=== PATIENT | female | born 1980 | race Caucasian/White ===

== ENCOUNTER 2016-11-15 17:09 | Emergency (ER) | payer BC, MEDICAID ==
[2016-11-15] MEDS ORDERED: KETOROLAC TROMETHAMINE 60 MG/2 ML SDV IM ONE (18:28)
--- NOTE | 2016-11-15 19:06 | ER Document Report ---
ED General - General Time seen by provider: 18:15 Mode of Arrival: Ambulatory Information source: Patient TRAVEL OUTSIDE OF THE U.S. IN LAST 30 DAYS: No - HPI Onset: Other - see HPI note Similar symptoms previously: No Recently seen / treated by doctor: No <YANICK AGUIAR - Last Filed: 11/15/16 19:21> <TYYOHAN - Last Filed: 11/19/16 02:56> - General Chief Complaint: Abdominal Pain Stated Complaint: ABDOMINAL PAIN Notes: Patient is a 36-year-old female presenting to the emergency department for some right-sided abdominal pain. Patient states that she has had this pain for the past week. Patient's pain has increased in the past 3-4 days , as well as radiating throughout her abdomen and pelvic area. Patient states that she does not kidney stones. Patient has had a cholecystectomy and a partial hysterectomy (patient still has her ovaries). Patient states that she also has some type of liver disease and has been evaluated for this at [place] with a liver specialist. Patient has had constant nausea and constant diarrhea. Patient states that she also saw pelvic pain specialist due to her very being "loose and possibly twisted." Patient also has a history of ovarian cysts. Patient states that after her hysterectomy. She is having daily pelvic pain which is why she went saw a specialist. Patient states she sees Dr. Damon with [facility]. (YANICK AGUIAR) - Related Data Allergies/Adverse Reactions: No Known Allergies Allergy (Verified 11/15/16 18:14) Past Medical History - General Information source: Patient - Social History Smoking Status: Unknown if Ever Smoked Family History: None Patient has suicidal ideation: No Patient has homicidal ideation: No Pulmonary Medical History: Reports: Hx Pneumonia Neurological Medical History: Reports: Hx Migraine Renal/ Medical History: Reports: Hx Kidney Stones, Hx Ovarian Cysts Musculoskeltal Medical History: Reports Hx Arthritis - Rheumatoid arthritis, Reports Hx Fibromyalgia Past Surgical History: Reports: Hx Section - x2, Hx Cholecystectomy, Hx Hysterectomy - 2010, Hx Kidney (Renal Surgery) - lithotripsy - Immunizations Immunizations up to date: Yes Hx Diphtheria, Pertussis, Tetanus Vaccination: Yes <YANICK AGUIAR - Last Filed: 11/15/16 19:21> Review of Systems - Review of Systems Constitutional: No symptoms reported EENT: No symptoms reported Cardiovascular: No symptoms reported Respiratory: No symptoms reported Gastrointestinal: See HPI, Abdominal pain, Diarrhea, Nausea Genitourinary: No symptoms reported Female Genitourinary: See HPI Musculoskeletal: No symptoms reported Skin: No symptoms reported Hematologic/Lymphatic: No symptoms reported Neurological/Psychological: No symptoms reported -: Yes All other systems reviewed and negative <KARYYANICK BRYANT - Last Filed: 11/15/16 19:21> Physical Exam - Vital signs Interpretation: Normal - General General appearance: Appears well, Alert In distress: Mild - HEENT Head: Normocephalic, Atraumatic Eyes: Normal Pupils: PERRL Mucous membranes: Moist - Respiratory Respiratory status: No respiratory distress Chest status: Nontender Breath sounds: Normal Chest palpation: Normal - Cardiovascular Rhythm: Regular Heart sounds: Normal auscultation Murmur: No - Abdominal Inspection: Normal Distension: No distension Bowel sounds: Normal Tenderness: Nontender Organomegaly: No organomegaly - Back Back: Normal, Nontender - Extremities General upper extremity: Normal inspection, Normal ROM, Normal strength General lower extremity: Normal inspection, Normal ROM, Normal strength - Neurological Neuro grossly intact: Yes Cognition: Normal Orientation: AAOx4 Demarco Coma Scale Eye Opening: Spontaneous [place] Coma Scale Verbal: Oriented Demarco Coma Scale Motor: Obeys Commands Demarco Coma Scale Total: 15 Speech: Normal Sensory: Normal - Psychological Associated symptoms: Normal affect, Normal mood - Skin Skin Temperature: Warm Skin Moisture: Dry <KARYANNETTEYANICK - Last Filed: 11/15/16 19:21> <YOHAN CRAWFORD - Last Filed: 11/19/16 02:56> - Vital signs Vitals: Temp Pulse Resp BP Pulse Ox 98.1 F 60 16 98/71 L 100 11/15/16 17:23 11/15/16 17:23 11/15/16 17:23 11/15/16 17:23 11/15/16 17:23 Course <YANICK AGUIAR - Last Filed: 11/15/16 19:21> - Laboratory Result Diagrams: 11/15/16 19:42 11/15/16 19:42 <YOHAN CRAWFORD - Last Filed: 11/19/16 02:56> - Re-evaluation Re-evalutation: 11/15/16 20:41 She presents emergency per with nonspecific abdominal pain it's been going on for several days. She has a history of ovarian cyst as well as chronic pelvic pain and adhesions. She states is no associated nausea vomiting diarrhea fevers chills or change in appetite. She does not have her uterus anymore she's had ovarian cysts in the past and feels similar no vaginal discharge or urinary complaints. On examination she is well-appearing nontoxic in no acute distress serial abdominal examinations no acute tenderness or any rebound rigidity. Laboratory evaluation no acute white cell count elevation laboratory evaluation negative chemistry negative urinalysis for infection. Patient is given a shot of Toradol oral Percocet here. He does not warrant an acute CT scan of the abdomen or pelvis. Going to have her follow-up with primary care physician in 1224 hrs. no acute clinical concerns for appendicitis return for increasing worsening or new symptoms (YOHAN CRAWFORD) - Vital Signs Vital signs: Temp Pulse Resp BP Pulse Ox 98.1 F 52 L 18 101/68 100 11/15/16 20:43 11/15/16 20:43 11/15/16 20:43 11/15/16 20:43 11/15/16 20:43 - Laboratory Laboratory results interpreted by me: 11/15/16 18:43 Urine Ketones TRACE H Urine Urobilinogen 2.0 H Urine Ascorbic Acid 40 H Discharge <YANICK AGUIAR - Last Filed: 11/15/16 19:21> <YOHAN CRAWFORD - Last Filed: 11/19/16 02:56> - Discharge Clinical Impression: abdominal pain Condition: Stable Disposition: HOME, SELF-CARE Instructions: Abdominal Pain ([facility]) Additional Instructions: Abdominal Pain There are many causes of abdominal pain. Pain can mean a serious problem requiring surgery (such as appendicitis). It can also be an innocent problem that goes away on its own (such as a viral infection). Often, time must pass to determine the cause of pain. The physician does not feel that hospitalization is necessary, at present. Things may change within the next 24 hours. Call the doctor or come back for re- examination if any problems occur, such as: (1) Pain that becomes more severe, steady, or becomes concentrated in one specific area. Also, pain that is more severe with movement or coughing. (2) Vomiting that persists or becomes more frequent. (3) Blood in the vomitus, urine, or bowel movements. Blood in the stool may have a tarry or black appearance. (4) Shaking chills or fever greater than 100 degrees F. (5) The abdomen becomes more distended or swollen. (6) Bowel movements cease. (7) Failure to improve as expected. Follow-up with your primary care physician 1224 hrs. return for increasing worsening or new symptoms Scribe Attestation: 11/15/16 20:44 I personally performed the services described in the documentation reviewed the documentation recorded by my scribe in my presence and it accurately and completely records my words and actions (YOHAN CRAWFORD) Scribe Documentation - Scribe Written by Scribe:: Yanick Aguiar 11/15/16 19:15 acting as scribe for :: Ty <YANICK AGUIAR - Last Filed: 11/15/16 19:21>
[2016-11-15 19:12] LABS: APPEARANCE,URINE SLIGHTLY-CLOUDY; BILIRUBIN,URINE NEGATIVE (NEGATIVE); GLUCOSE, URINE NEGATIVE (NEGATIVE); KETONES,URINE TRACE mg/dL (NEGATIVE); LEUKOCYTE ESTERASE,URINE NEGATIVE (NEGATIVE); NITRITE,URINE NEGATIVE (NEGATIVE); PROTEIN,URINE NEGATIVE (NEGATIVE); URINE SPECIFIC GRAVITY 1.023
[2016-11-15 19:25] LABS: URINE BARBITURATES SCREEN NEGATIVE; URINE METHADONE SCREEN NEGATIVE; URINE OPIATES LOW NEGATIVE; URINE PHENCYCLIDINE SCREEN NEGATIVE
[2016-11-15 20:08] LABS: ABSOLUTE LYMPHOCYTES (AUTO) 1.7 10^3/uL (0.5-4.7); ABSOLUTE MONOCYTES (AUTO) 0.4 10^3/uL (0.1-1.4); ABSOLUTE NEUT (AUTO) 5.2 10^3/uL (1.7-8.2); BASOPHILS % (AUTO) 0.5 % (0-2); EOSINOPHILS % (AUTO) 0.6 % (0-6); HEMATOCRIT 41.4 % (36.0-47.0); HEMOGLOBIN 13.9 g/dL (12.0-15.5); HGB HCT DIFFERENCE 0.3; LYMPHOCYTES % (AUTO) 23.7 % (13-45); MEAN CORPUSCULAR HEMOGLOBIN 31.4 pg (27.0-33.4); MEAN CORPUSCULAR HGB CONC 33.4 g/dL (32.0-36.0); MEAN CORPUSCULAR VOLUME 94 fl (80-97); MONOCYTES % (AUTO) 4.8 % (3-13); RED BLOOD COUNT 4.41 10^6/uL (3.72-5.28); SEGMENTED NEUTROPHILS % (AUTO) 70.4 % (42-78); WHITE BLOOD COUNT 7.3 10^3/uL (4.0-10.5)
[2016-11-15 20:26] LABS: ALANINE AMINOTRANSFERASE 24 U/L (9-52); ALBUMIN 4.5 g/dL (3.5-5.0); ALKALINE PHOSPHATASE 59 U/L (38-126); ANION GAP 12 (5-19); ASPARTATE AMINO TRANSFERASE 19 U/L (14-36); BILIRUBIN,DIRECT 0.3 mg/dL (0.0-0.4); BLOOD UREA NITROGEN 16 mg/dL (7-20); CARBON DIOXIDE 30 mmol/L (22-30); CHLORIDE 101 mmol/L (98-107); CREATININE RESULT 0.72 mg/dL (0.52-1.25); GLUCOSE 84 mg/dL (75-110); LIPASE 52.4 U/L (23-300); SODIUM 143.4 mmol/L (137-145); TOTAL PROTEIN 7.3 g/dL (6.3-8.2)
[2016-11-15] MEDS ORDERED: HYDROCODONE/ACETAMINOPHEN 5-325 MG 6 TAB/DSPK PO PRN (20:44)
[2016-11-15 20:51] VITALS: BP 101/68
== END 2016-11-15 21:00 | disposition home or self-care (01) ==
LOC: ER 17:09
DX: R10.9 Unspecified abdominal pain (principal); R10.2 Pelvic and perineal pain
CPT/HCPCS: 99284; 96372; 36415; 83690; 85025; 80053; 81001; 80307; J1885

== ENCOUNTER 2017-03-07 16:31 | Emergency (ER) | payer SELFPAY ==
--- NOTE | 2017-03-07 17:27 | ER Document Report ---
ED Fall - General Chief Complaint: Fall Injury Stated Complaint: FALL/HEAD INJURY Time Seen by Provider: 03/07/17 17:26 Notes: The patient is a 36-year-old female, past medical history fibromyalgia, who presents after she fell off a chair and landed on her back. She is complaining of head pain, neck pain, back pain and right hand and wrist pain. She thinks she had LOC. She denies blurry vision, chest pain, shortness of breath, saddle anesthesia, ataxia, change in bowel or bladder, fevers or abdominal pain. TRAVEL OUTSIDE OF THE [place] IN LAST 30 DAYS: No - Related data Allergies/Adverse Reactions: No Known Allergies Allergy (Verified 11/15/16 18:14) Home Medications: Current Home Medications Buspirone HCl 15 mg PO TID 03/07/17 [History] Clonazepam 03/07/17 [History] Clonazepam [Klonopin] 1 mg PO PRN PRN 03/07/17 [History] Diazepam [Valium 5 mg Tablet] 10 mg PO QID 03/07/17 [History] Fluoxetine HCl [Prozac] 40 mg PO DAILY 03/07/17 [History] Lamotrigine 25 mg PO DAILY 03/07/17 [History] Trazodone HCl 100 mg PO QHS 03/07/17 [History] Past Medical History - General Information source: Patient - Social History Smoking Status: Unknown if Ever Smoked Family History: None - Past Medical History Cardiac Medical History: Denies: Hx Coronary Artery Disease, Hx Heart Attack, Hx Hypertension Pulmonary Medical History: Reports: Hx Pneumonia Denies: Hx Asthma, Hx Bronchitis, Hx COPD Neurological Medical History: Reports: Hx Migraine. Denies: Hx Cerebrovascular Accident, Hx Seizures Renal/ Medical History: Reports: Hx Kidney Stones, Hx Ovarian Cysts. Denies: Hx Peritoneal Dialysis Musculoskeltal Medical History: Reports Hx Arthritis - Rheumatoid arthritis, Reports Hx Fibromyalgia Past Surgical History: Reports: Hx Section - x2, Hx Cholecystectomy, Hx Hysterectomy, Hx Kidney (Renal Surgery) - lithotripsy - Immunizations Immunizations up to date: Yes Hx Diphtheria, Pertussis, Tetanus Vaccination: Yes Review of Systems - Review of Systems Notes: REVIEW OF SYSTEMS: CONSTITUTIONAL: -fevers, -chills EENT: -eye pain, -difficulty swallowing, -nasal congestion CARDIOVASCULAR:-chest pain, -syncope. RESPIRATORY: -cough, -SOB GASTROINTESTINAL: -abdominal pain, -nausea, -vomiting, -diarrhea GENITOURINARY: -dysuria, -hematuria MUSCULOSKELETAL: +back pain, +neck pain SKIN: -rash or skin lesions. HEMATOLOGIC: -easy bruising or bleeding. LYMPHATIC: -swollen, enlarged glands. NEUROLOGICAL: -altered mental status, +loss of consciousness, +headache, - neurologic symptoms PSYCHIATRIC: -anxiety, -depression. ALL OTHER SYSTEMS REVIEWED AND NEGATIVE. Physical Exam - Vital signs Vitals: Resp 16 03/07/17 16:47 - Notes Notes: PHYSICAL EXAMINATION: GENERAL: Well-appearing, well-nourished and in no acute distress. HEAD: Atraumatic, normocephalic. EYES: Pupils equal round and reactive to light, extraocular movements intact, sclera anicteric, conjunctiva are normal. ENT: nares patent, oropharynx clear without exudates. Moist mucous membranes. NECK: Midline C-spine tenderness, patient arrives in c-collar BACK: Midline thoracic tenderness LUNGS: Breath sounds clear to auscultation bilaterally and equal. No wheezes rales or rhonchi. HEART: Regular rate and rhythm without murmurs ABDOMEN: Soft, nontender, normoactive bowel sounds. No guarding, no rebound. No masses appreciated. EXTREMITIES: Tenderness over right distal forearm, no snuffbox tenderness; N/V intact NEUROLOGICAL: Cranial nerves grossly intact. Normal speech, normal gait. Normal sensory and motor exams. PSYCH: Normal mood, normal affect. SKIN: Ecchymosis over right distal radius, warm, dry, normal turgor, no rashes or lesions noted. Course - Re-evaluation Re-evalutation: Patient's head CT, C-spine CT, thoracic x-ray, right wrist and hand x-rays do not show any evidence of acute fractures or bleeds. Instructed patient about contusion management and follow-up with primary care physician. - Vital Signs Vital signs: Temp Pulse Resp BP Pulse Ox 97.1 F 58 L 18 100/74 98 03/07/17 16:50 03/07/17 19:06 03/07/17 19:06 03/07/17 19:06 03/07/17 19:06 Discharge - Discharge Clinical Impression: Neck pain Fall Qualifiers: Encounter type: initial encounter Qualified Code(s): W19.XXXA - Unspecified fall, initial encounter Head injury Qualifiers: Encounter type: initial encounter Qualified Code(s): S09.90XA - Unspecified injury of head, initial encounter Back pain Qualifiers: Back pain location: thoracic back pain Chronicity: acute Back pain laterality: bilateral Qualified Code(s): M54.6 - Pain in thoracic spine Condition: Stable Disposition: HOME, SELF-CARE Additional Instructions: Contusion Your injury has resulted in a contusion -- a crushing of the deep tissues. No injury to important structures was detected during the physician's exam. Contusions vary in the amount of pain they cause, and in the length of time required for healing. Typically, the area will become bruised, and will remain painful to touch for two or three weeks. However, most patients are back to working and playing within a few days. After the initial period of rest and cold-packs, your symptoms (together with the doctor's recommendations) will determine how rapidly you can get back to full activity. Usually this means "do what feels okay, but don't do things that hurt." If re-examination was recommended, it's important to follow up as instructed. Call the doctor or return any time if pain increases, if swelling becomes severe, if you develop numbness or weakness in an injured extremity, or if any other alarming symptoms occur. Head Injury Your examination shows no evidence of brain injury. You can therefore be safely observed at home. Give clear liquids only for the first eight hours. Acetaminophen or ibuprofen can safely be given for pain. Follow the directions on the bottle. Do not give any medication that may alter her/his level of alertness. Limit activity for the first 24 hours -- bed rest is advisable at first. Several times during the first 24 hours, check the patient to see if the pupils are equal in size to each other, that the patient is easily arousable, and responds normally. Contact your doctor or go to the hospital if any of the following things occur: Persistent or projectile vomiting, a seizure, confusion , unequal pupil size, difficulty in arousing the patient, worsening or continued headache, or failure to improve as expected. Prescriptions: Hydrocodone/Acetaminophen [[place] 5-325 mg Tablet] 1 tab PO Q6H PRN #7 tablet PRN Reason:
[2017-03-07] MEDS ORDERED: KETOROLAC TROMETHAMINE INJ/PF 30 MG/1 ML SDV ONE (17:36)
[2017-03-07] MEDS ORDERED: MORPHINE SULFATE 10 MG/ML INJ ONE (17:37)
[2017-03-07] MEDS ORDERED: KETOROLAC TROMETHAMINE INJ/PF 30 MG/1 ML SDV IV ONE (17:45)
[2017-03-07] MEDS ORDERED: MORPHINE SULFATE 10 MG/ML INJ IV ONE (17:45)
[2017-03-07] MEDS ORDERED: ONDANSETRON HCL INJ/PF 4 MG/2 ML SDV ONE (18:17)
[2017-03-07] MEDS ORDERED: HYDROCODONE/ACETAMINOPHEN 5-325 MG TABLET PO ONE (18:51)
[2017-03-07 19:08] VITALS: BP 100/74
--- NOTE | 2017-03-08 17:08 | RADIOLOGY REPORT (SQ) ---
EXAM DESCRIPTION: T SPINE AP/LAT COMPLETED DATE/TIME: 03/07/2017 6:07 pm REASON FOR STUDY: thoracic midline tenderness s/p fall COMPARISON: None. NUMBER OF VIEWS: Two views. TECHNIQUE: AP and lateral radiographic images acquired of the thoracic spine. LIMITATIONS: None. FINDINGS: MINERALIZATION: Normal. ALIGNMENT: Normal. Moderate scoliosis. VERTEBRAE: No fracture or bone lesion. Maintained height, normal segmentation. DISCS: No significant loss of height or significant narrowing. No large osteophytes. HARDWARE: None in the spine. MEDIASTINUM AND SOFT TISSUES: Normal heart size and aortic contour. No soft tissue abnormality. VISUALIZED LUNG ARGUELLO: Clear. OTHER: No other significant finding. IMPRESSION: SCOLIOSIS. NO FRACTURE. TECHNICAL DOCUMENTATION: JOB ID: [id number] [employer]- All Rights Reserved
--- NOTE | 2017-03-08 17:09 | RADIOLOGY REPORT (SQ) ---
EXAM DESCRIPTION: WRIST RIGHT 3 VIEWS COMPLETED DATE/TIME: 03/07/2017 6:07 pm REASON FOR STUDY: fall COMPARISON: None. NUMBER OF VIEWS: Three views. TECHNIQUE: AP, lateral, and oblique radiographic images acquired of the right wrist. LIMITATIONS: None. FINDINGS: MINERALIZATION: Normal. BONES: No acute fracture or dislocation. No worrisome bone lesions. Normal alignment. SOFT TISSUES: No soft tissue swelling. No foreign body. OTHER: No other significant finding. IMPRESSION: NEGATIVE STUDY OF THE RIGHT WRIST. NO RADIOGRAPHIC EVIDENCE OF ACUTE INJURY. TECHNICAL DOCUMENTATION: JOB ID: [id number] [email or web address]- All Rights Reserved
--- NOTE | 2017-03-08 17:10 | RADIOLOGY REPORT (SQ) ---
EXAM DESCRIPTION: HAND RIGHT 2 VIEWS COMPLETED DATE/TIME: 03/07/2017 6:07 pm REASON FOR STUDY: TRAUMA. COMPARISON: None. NUMBER OF VIEWS: Two view. TECHNIQUE: AP and lateral radiographic images acquired of the right hand. LIMITATIONS: None. FINDINGS: MINERALIZATION: Normal. BONES: No acute fracture or dislocation. No worrisome bone lesions. JOINTS: No effusions. SOFT TISSUES: No soft tissue swelling. No foreign body. OTHER: No other significant finding. IMPRESSION: NEGATIVE STUDY OF THE RIGHT HAND. NO RADIOGRAPHIC EVIDENCE OF ACUTE INJURY. TECHNICAL DOCUMENTATION: JOB ID: [id number] [employer]- All Rights Reserved
--- NOTE | 2017-03-08 17:12 | RADIOLOGY REPORT (SQ) ---
EXAM DESCRIPTION: CT HEAD WITHOUT COMPLETED DATE/TIME: 03/07/2017 5:53 pm REASON FOR STUDY: [place] bed 3 s/p fall with loc per dr wilson COMPARISON: 11/05/2015 TECHNIQUE: Axial images acquired through the brain without intravenous contrast. Images reviewed wi th bone, brain and subdural windows. Images stored on PACS. LIMITATIONS: None. FINDINGS: VENTRICLES: Normal size and contour. CEREBRUM: No masses. No hemorrhage. No midline shift. Normal nguyen/white matter differentiation. N o evidence for acute infarction. CEREBELLUM: No masses. No hemorrhage. No alteration of density. No evidence for acute infarction. EXTRAAXIAL SPACES: No fluid collections. No masses. ORBITS AND GLOBE: No intra- or extraconal masses. Normal contour of globe without masses. CALVARIUM: No fracture. PARANASAL SINUSES: No fluid or mucosal thickening. SOFT TISSUES: No mass or hematoma. OTHER: No other significant finding. IMPRESSION: NORMAL BRAIN CT WITHOUT CONTRAST. COMMENT: WAS EXAM PERFORMED WITHIN 24 HOURS UPON ARRIVAL TO FACILITY? Yes. TECHNICAL DOCUMENTATION: JOB ID: [id number]
--- NOTE | 2017-03-08 17:12 | RADIOLOGY REPORT (SQ) ---
EXAM DESCRIPTION: CT CERVICAL SPINE WITHOUT COMPLETED DATE/TIME: 03/07/2017 5:53 pm REASON FOR STUDY: [place] bed 3 s/p fall with loc per dr wilson COMPARISON: None. TECHNIQUE: Axial images acquired through the cervical spine without intravenous contrast. Images re viewed with lung, soft tissue and bone windows. Reconstructed coronal and sagittal MPR images review ed. Images stored on PACS. All CT scanners at this facility use dose modulation, iterative reconstruction, and/or weight based d osing when appropriate to reduce radiation dose to as low as reasonably achievable (ALARA). [facility]: Dose Right [facility]: CareDose [facility]: Dose Right [facility]: Teradose 4D [facility]: [employer] RADIATION DOSE: mGy. LIMITATIONS: None. FINDINGS: ALIGNMENT: Anatomic. MINERALIZATION: Normal. VERTEBRAL BODIES: No fractures or dislocation. DISCS: No significant disc disease. FACETS, LATERAL MASSES, POSTERIOR ELEMENTS: No fractures. No dislocation. No acute findings. HARDWARE: None in the spine. VISUALIZED RIBS: No fractures. LUNG APICES AND SOFT TISSUES: No significant or acute findings. OTHER: No other significant finding. IMPRESSION: NO ACUTE OR SIGNIFICANT FINDINGS IN THE CERVICAL SPINE. TECHNICAL DOCUMENTATION: JOB ID: [id number] [facility] [id number]: Final reports with documentation of one or more dose reduction techniques (e.g., Automate d exposure control, adjustment of the mA and/or kV according to patient size, use of iterative recons truction technique) 2010 [employer]- All Rights Reserved
== END 2017-03-07 19:06 | disposition home or self-care (01) ==
LOC: ER 16:31
DX: S06.9X9A Unspecified intracranial injury with loss of consciousness of unspecified duration, initial encounter (principal); S50.11XA Contusion of right forearm, initial encounter; W07.XXXA Fall from chair, initial encounter; Y93.89 Activity, other specified; R51 Headache; M54.2 Cervicalgia; M54.9 Dorsalgia, unspecified; M79.641 Pain in right hand; M25.531 Pain in right wrist; M54.6 Pain in thoracic spine
CPT/HCPCS: 99284; 96374; 96375; 73120; 72070; 73110; 70450; 72125; J1885; J2270

== ENCOUNTER 2017-06-05 16:22 | Emergency (ER) | payer BC ==
[2017-06-05] MEDS ORDERED: KETOROLAC TROMETHAMINE 60 MG/2 ML SDV IM ONE (17:36)
--- NOTE | 2017-06-05 17:38 | ER Document Report ---
HPI - HPI Patient complains to provider of: shingles pain Onset: Other - 3 weeks Onset/Duration: Persistent Quality of pain: Achy Pain Level: 4 Context: Patient states she has had shingles for the past 3 weeks. Patient has already seen her doctor and be given a course of Valtrex. Patient states she finished antiviral medication and has since been started on gabapentin for continued pain. Patient denies any fever. Patient states she has been using topical capsaicin to help with discomfort in addition to gabapentin. Patient does have a history of fibromyalgia and is followed by pain management. Patient does have topical fentanyl patch for her chronic pain due to fibromyalgia. Associated Symptoms: Other - Shingles. denies: Fever Exacerbated by: Denies Relieved by: Denies Similar symptoms previously: No Recently seen / treated by doctor: Yes - ROS ROS below otherwise negative: Yes Systems Reviewed and Negative: Yes All other systems reviewed and negative - CONSTITUTIONAL Constitutional: DENIES: Fever, Chills - REPRODUCTIVE Reproductive: DENIES: : - DERM Skin Problems: Rash Past Medical History - General Information source: Patient - Social History Smoking Status: Never Smoker Frequency of alcohol use: None Drug Abuse: None Occupation: None Lives with: Spouse/Significant other Family History: None - Past Medical History Cardiac Medical History: Denies: Hx Coronary Artery Disease, Hx Heart Attack, Hx Hypertension Pulmonary Medical History: Reports: Hx Pneumonia Denies: Hx Asthma, Hx Bronchitis, Hx COPD Neurological Medical History: Reports: Hx Migraine. Denies: Hx Cerebrovascular Accident, Hx Seizures Renal/ Medical History: Reports: Hx Kidney Stones, Hx Ovarian Cysts. Denies: Hx Peritoneal Dialysis Musculoskeltal Medical History: Reports Hx Arthritis - Rheumatoid arthritis, Reports Hx Fibromyalgia Psychiatric Medical History: Reports: Hx Anxiety Past Surgical History: Reports: Hx Section - x2, Hx Cholecystectomy, Hx Hysterectomy, Hx Kidney (Renal Surgery) - lithotripsy - Immunizations Immunizations up to date: Yes Hx Diphtheria, Pertussis, Tetanus Vaccination: Yes Vertical Provider Document - CONSTITUTIONAL Agree With Documented VS: Yes Exam Limitations: No Limitations General Appearance: WD/WN, No Apparent Distress - INFECTION CONTROL TRAVEL OUTSIDE OF THE [place] IN LAST 30 DAYS: No - HEENT HEENT: Atraumatic, Normocephalic - NECK Neck: Normal Inspection, Supple - RESPIRATORY Respiratory: Breath Sounds Normal, No Respiratory Distress O2 Sat by Pulse Oximetry: 99 - CARDIOVASCULAR Cardiovascular: Regular Rate, Regular Rhythm - BACK Back: Normal Inspection - MUSCULOSKELETAL/EXTREMETIES Musculoskeletal/Extremeties: MAEW - NEURO Level of Consciousness: Awake, Alert, Appropriate Motor/Sensory: No Motor Deficit - DERM Integumentary: Warm, Dry, Rash - Erythematous rash to right breast and right upper thoracic area with scattered deroofed lesions consistent with reported history of herpes zoster. negative: Abscess Course - Re-evaluation Re-evalutation: 06/05/17 Patient advised that she has been receiving appropriate care to manage her shingles outbreak. Patient encouraged to follow-up with her pain management doctor tomorrow for further evaluation of her pain associated with her herpes zoster infection - Vital Signs Vital signs: Temp Pulse Resp BP Pulse Ox 97.9 F 86 12 100/63 99 06/05/17 16:27 06/05/17 16:27 06/05/17 16:27 06/05/17 16:27 06/05/17 16:27 Discharge - Discharge Clinical Impression: Shingles Qualifiers: Herpes zoster complications: without complications Qualified Code(s): B02.9 - Zoster without complications Condition: Stable Disposition: HOME, SELF-CARE Instructions: Shingles ([facility]), Toradol Injection ([facility]) Additional Instructions: Return immediately for any new or worsening symptoms Followup with your primary care provider, call tomorrow to make a followup appointment Follow-up with your pain management doctor tomorrow as planned Referrals: [facility] [Provider Group] - Follow up tomorrow
[2017-06-05 17:55] VITALS: BP 107/64
== END 2017-06-05 18:05 | disposition home or self-care (01) ==
LOC: ER 16:22
DX: B02.9 Zoster without complications (principal); M79.7 Fibromyalgia; G89.29 Other chronic pain; Z79.891 Long term (current) use of opiate analgesic
CPT/HCPCS: 99282; 96372; J1885

== ENCOUNTER 2018-01-29 15:15 | Emergency (ER) | payer SELFPAY ==
[2018-01-29] MEDS ORDERED: NORMAL SALINE 1000 ML 1,000 ML IV PRN (15:30)
--- NOTE | 2018-01-29 15:55 | RADIOLOGY REPORT (SQ) ---
EXAM DESCRIPTION: CT CERVICAL SPINE WITHOUT COMPLETED DATE/TIME: 01/29/2018 3:43 pm REASON FOR STUDY: fall down stairs COMPARISON: 03/07/2017 TECHNIQUE: Axial images acquired through the cervical spine without intravenous contrast. Images re viewed with lung, soft tissue and bone windows. Reconstructed coronal and sagittal MPR images review ed. Images stored on PACS. All CT scanners at this facility use dose modulation, iterative reconstruction, and/or weight based d osing when appropriate to reduce radiation dose to as low as reasonably achievable (ALARA). [facility]: Dose Right [facility]: CareDose [facility]: Dose Right [facility]: Teradose 4D [facility]: Smart [employer] RADIATION DOSE: CT Rad equipment meets quality standard of care and radiation dose reduction techniq ues were employed. CTDIvol: 15.2 mGy. DLP: 322 mGy-cm. mGy. LIMITATIONS: None. FINDINGS: ALIGNMENT: Anatomic. MINERALIZATION: Normal. VERTEBRAL BODIES: No fractures or dislocation. DISCS: No significant disc disease. FACETS, LATERAL MASSES, POSTERIOR ELEMENTS: No fractures. No dislocation. No acute findings. HARDWARE: None in the spine. VISUALIZED RIBS: No fractures. LUNG APICES AND SOFT TISSUES: No significant or acute findings. OTHER: No other significant finding. IMPRESSION: NO ACUTE OR SIGNIFICANT FINDINGS IN THE CERVICAL SPINE. TECHNICAL DOCUMENTATION: JOB ID: [id number] Quality ID # [id number]: Final reports with documentation of one or more dose reduction techniques (e.g., Au tomated exposure control, adjustment of the mA and/or kV according to patient size, use of iterative reconstruction technique) 2010 [employer]- All Rights Reserved Reading location - IP/workstation name: [email or web address]
--- NOTE | 2018-01-29 15:58 | RADIOLOGY REPORT (SQ) ---
EXAM DESCRIPTION: CT HEAD WITHOUT COMPLETED DATE/TIME: 01/29/2018 3:43 pm REASON FOR STUDY: fall down stairs COMPARISON: February 2017 TECHNIQUE: Axial images acquired through the brain without intravenous contrast. Images reviewed wi th bone, brain and subdural windows. Additional sagittal and coronal reconstructions were generated. Images stored on PACS. All CT scanners at this facility use dose modulation, iterative reconstruction, and/or weight based d osing when appropriate to reduce radiation dose to as low as reasonably achievable (ALARA). [facility]: Dose Right [facility]: CareDose [facility]: Dose Right [facility]: Teradose 4D [facility]: Smart [employer] RADIATION DOSE: CT Rad equipment meets quality standard of care and radiation dose reduction techniq ues were employed. CTDIvol: 53.2 mGy. DLP: 964 mGy-cm. mGy. LIMITATIONS: None. FINDINGS: VENTRICLES: Normal size and contour. CEREBRUM: No masses. No hemorrhage. No midline shift. No evidence for acute infarction. Normal gra y/white matter differentiation. No areas of low density in the white matter. CEREBELLUM: No masses. No hemorrhage. No alteration of density. No evidence for acute infarction. EXTRAAXIAL SPACES: No fluid collections. No masses. ORBITS AND GLOBE: No intra- or extraconal masses. Normal contour of globe without masses. CALVARIUM: No fracture. PARANASAL SINUSES: No fluid or mucosal thickening. SOFT TISSUES: No mass or hematoma. OTHER: No other significant finding. IMPRESSION: NORMAL BRAIN CT WITHOUT CONTRAST. EVIDENCE OF ACUTE STROKE: NO. COMMENT: Quality ID # [id number]: Final reports with documentation of one or more dose reduction techniques (e.g., Automated exposure control, adjustment of the mA and/or kV according to patient size, use of iterative reconstruction technique) TECHNICAL DOCUMENTATION: JOB ID: [id number] [employer]- All Rights Reserved Reading location - IP/workstation name: [email or web address]
--- NOTE | 2018-01-29 16:17 | RADIOLOGY REPORT (SQ) ---
EXAM DESCRIPTION: KNEE LEFT 3 VIEWS COMPLETED DATE/TIME: 01/29/2018 4:07 pm REASON FOR STUDY: fall down stairs COMPARISON: None. NUMBER OF VIEWS: Two views. TECHNIQUE: AP and sunrise patella radiographic images acquired of the left knee. LIMITATIONS: None. FINDINGS: MINERALIZATION: Normal. BONES: No acute fracture or dislocation. No worrisome bone lesions. JOINT: No effusion. SOFT TISSUES: No soft tissue swelling. No radio-opaque foreign body. OTHER: No other significant finding. IMPRESSION: NEGATIVE STUDY OF THE LEFT KNEE. NO RADIOGRAPHIC EVIDENCE OF ACUTE INJURY. TECHNICAL DOCUMENTATION: JOB ID: [id number] [employer]- All Rights Reserved Reading location - IP/workstation name: [email or web address]
--- NOTE | 2018-01-29 16:19 | RADIOLOGY REPORT (SQ) ---
EXAM DESCRIPTION: ANKLE LEFT COMPLETE COMPLETED DATE/TIME: 01/29/2018 4:07 pm REASON FOR STUDY: fall down stairs COMPARISON: None. NUMBER OF VIEWS: Three views. TECHNIQUE: AP, lateral, and oblique radiographic images acquired of the left ankle. LIMITATIONS: None. FINDINGS: MINERALIZATION: Normal. BONES: No acute fracture or dislocation. No worrisome bone lesions. JOINTS: No effusions. SOFT TISSUES: No soft tissue swelling. No foreign body. OTHER: No other significant finding. IMPRESSION: NEGATIVE STUDY OF THE LEFT ANKLE. NO RADIOGRAPHIC EVIDENCE OF ACUTE INJURY. TECHNICAL DOCUMENTATION: JOB ID: [id number] [employer]- All Rights Reserved Reading location - IP/workstation name: [email or web address]
--- NOTE | 2018-01-29 16:21 | PSYCHOLOGICAL NOTE ---
Psych Note - Psych Note Psych Note: Reason for consult concern of self-harm behavior Pt to ED via EMS c/o left ankle pain and neck pain after "passing out" and sliding down carpeted stairs in home. Pt reports she has had previous syncopal episodes d/t low blood pressure. Impression\\plan: Patient is cleared from acute psychiatric services. Patient does not meet IVC criteria per [place] GS 120 2C. Patient adamantly denies intentional falling saying she thought she heard somebody knocking was running for the stairs. She does confirm of self-harm behavior (cutting) on her stomach for the first time however states this was because her anxiety had become so intense. Patient again adamantly denied suicidal ideation. Patient states that she has an outpatient mental health provider through [facility]. Patient' s son and mother spoke to clinician separately; they disclosed they have no concerns for the patient and have not noticed any recent changes in behaviors. Patient is recommended to follow-up with her outpatient mental health provider to discuss possible medication changes as she identifies having more difficulty controlling her anxiety recently. Dr. Mott was consulted and the care and management this patient; attending physician is agreement with recommendations and disposition.
[2018-01-29 16:53] LABS: APPEARANCE,URINE CLEAR; BILIRUBIN,URINE NEGATIVE (NEGATIVE); COLOR,URINE YELLOW; GLUCOSE, URINE NEGATIVE (NEGATIVE); KETONES,URINE NEGATIVE (NEGATIVE); LEUKOCYTE ESTERASE,URINE NEGATIVE (NEGATIVE); NITRITE,URINE NEGATIVE (NEGATIVE); PROTEIN,URINE NEGATIVE (NEGATIVE); URINE SPECIFIC GRAVITY 1.004; UROBILINOGEN,URINE NEGATIVE mg/dL (<2.0)
[2018-01-29 17:03] LABS: ABSOLUTE BASOPHILS # (AUTO) 0.1 10^3/uL (0.0-0.2); ABSOLUTE LYMPHOCYTES (AUTO) 1.4 10^3/uL (0.5-4.7); ABSOLUTE MONOCYTES (AUTO) 0.5 10^3/uL (0.1-1.4); ABSOLUTE NEUT (AUTO) 5.4 10^3/uL (1.7-8.2); EOSINOPHILS % (AUTO) 0.7 % (0-6); HEMATOCRIT 43.9 % (36.0-47.0); HEMOGLOBIN 15.2 g/dL (12.0-15.5); LYMPHOCYTES % (AUTO) 18.6 % (13-45); MEAN CORPUSCULAR HEMOGLOBIN 31.4 pg (27.0-33.4); MEAN CORPUSCULAR HGB CONC 34.7 g/dL (32.0-36.0); MEAN CORPUSCULAR VOLUME 91 fl (80-97); MONOCYTES % (AUTO) 6.8 % (3-13); PLATELET COUNT 238 10^3/uL (150-450); RED BLOOD COUNT 4.85 10^6/uL (3.72-5.28); SEGMENTED NEUTROPHILS % (AUTO) 72.9 % (42-78); TOTAL CELLS COUNTED % (AUTO) 100 %; WHITE BLOOD COUNT 7.4 10^3/uL (4.0-10.5)
[2018-01-29] MEDS ORDERED: DIPH/PERTUSS(ACELL)/TETANUS VAC/PF 0.5 ML SYR (>=10YO) IM ONE (17:12)
[2018-01-29 17:14] LABS: URINE AMPHETAMINES SCREEN NEGATIVE; URINE BARBITURATES SCREEN NEGATIVE; URINE BENZODIAZEPINES SCREEN NEGATIVE; URINE COCAINE SCREEN NEGATIVE; URINE MARIJUANA (THC) SCREEN NEGATIVE; URINE METHADONE SCREEN NEGATIVE; URINE PHENCYCLIDINE SCREEN NEGATIVE
[2018-01-29 17:24] LABS: ALANINE AMINOTRANSFERASE 18 U/L (9-52); ALBUMIN 4.7 g/dL (3.5-5.0); ALKALINE PHOSPHATASE 56 U/L (38-126); ANION GAP 16 (5-19); ASPARTATE AMINO TRANSFERASE 18 U/L (14-36); BILIRUBIN,DIRECT 0.3 mg/dL (0.0-0.4); BILIRUBIN,TOTAL 1.1 mg/dL (0.2-1.3); BLOOD UREA NITROGEN 9 mg/dL (7-20); CALCIUM 9.9 mg/dL (8.4-10.2); CARBON DIOXIDE 26 mmol/L (22-30); CHLORIDE 105 mmol/L (98-107); GLUCOSE 84 mg/dL (75-110); POTASSIUM 4.2 mmol/L (3.6-5.0); SODIUM 146.8 mmol/L (137-145); TOTAL PROTEIN 7.8 g/dL (6.3-8.2)
[2018-01-29 17:39] LABS: ACETAMINOPHEN < 10 ug/mL (10-30); ALCOHOL < 10 mg/dL (NONE DETECTED); SALICYLATE < 1.0 mg/dL (2.0-20.0)
--- NOTE | 2018-01-29 19:19 | ER Document Report ---
ED General - General Chief Complaint: Fall Stated Complaint: ANKLE PAIN Time Seen by Provider: 01/29/18 15:20 TRAVEL OUTSIDE OF THE [place] IN LAST 30 DAYS: No - HPI Patient complains to provider of: Fall syncope Notes: Patient coming in after a fall. Patient states he fell down 30 steps in her home patient states she is unaware if she passed out or not but does not remember the events of falling down the stairs family member at bedside states they found the patient at the bottom of the stairs when he arrived home. Patient denies any chest pain abdominal pain prior to her currently at this time. Patient does complain of left ankle left knee neck and head pain. Patient denies any history of passing out before. Patient is unaware of what time the events may have occurred staying "I am just unaware as on top of the stairs and then was on the bottom of the stairs patient is unaware how long she laid on the floor. States history of depression fibromyalgia. Patient is in c- collar upon my evaluation - Related Data Allergies/Adverse Reactions: No Known Allergies Allergy (Verified 01/29/18 15:27) Past Medical History - Social History Smoking Status: Never Smoker Chew tobacco use (# tins/day): No Frequency of alcohol use: Occasional Drug Abuse: None Family History: None Patient has suicidal ideation: No Patient has homicidal ideation: No - Past Medical History Cardiac Medical History: Denies: Hx Coronary Artery Disease, Hx Heart Attack, Hx Hypertension Pulmonary Medical History: Reports: Hx Pneumonia Denies: Hx Asthma, Hx Bronchitis, Hx COPD Neurological Medical History: Reports: Hx Migraine. Denies: Hx Cerebrovascular Accident, Hx Seizures Renal/ Medical History: Reports: Hx Kidney Stones, Hx Ovarian Cysts. Denies: Hx Peritoneal Dialysis Musculoskeltal Medical History: Reports Hx Arthritis - Rheumatoid arthritis, Reports Hx Fibromyalgia Psychiatric Medical History: Reports: Hx Anxiety, Hx Depression Past Surgical History: Reports: Hx Section - x2, Hx Cholecystectomy, Hx Hysterectomy, Hx Kidney (Renal Surgery) - lithotripsy - Immunizations Immunizations up to date: Yes Hx Diphtheria, Pertussis, Tetanus Vaccination: Yes Review of Systems - Review of Systems Constitutional: No symptoms reported EENT: No symptoms reported Cardiovascular: Syncope Respiratory: No symptoms reported Gastrointestinal: No symptoms reported Genitourinary: No symptoms reported Female Genitourinary: No symptoms reported Musculoskeletal: No symptoms reported Skin: No symptoms reported Hematologic/Lymphatic: No symptoms reported Neurological/Psychological: No symptoms reported -: Yes All other systems reviewed and negative Physical Exam - Vital signs Vitals: Temp Pulse Resp BP Pulse Ox 98.4 F 62 18 100/72 98 01/29/18 15:15 01/29/18 15:15 01/29/18 15:15 01/29/18 15:15 01/29/18 15:15 Interpretation: Normal - General General appearance: Appears well, Alert - HEENT Head: Normocephalic, Atraumatic Eyes: Normal Pupils: PERRL - Respiratory Respiratory status: No respiratory distress Chest status: Nontender Breath sounds: Normal Chest palpation: Normal - Cardiovascular Rhythm: Regular Heart sounds: Normal auscultation Murmur: No - Abdominal Inspection: Normal Distension: No distension Bowel sounds: Normal Tenderness: Nontender Organomegaly: No organomegaly Notes: Multiple superficial lacerations to the abdomen that are self-inflicted. - Back Back: Normal, Nontender - Extremities General upper extremity: Normal inspection, Nontender, Normal color, Normal ROM , Normal temperature General lower extremity: Normal inspection, Normal color, Normal ROM, Normal temperature, Normal weight bearing. No: Nontender - Tenderness to palpation of the lateral malleolus along with tenderness to palpation of the knee diffusely. Slight abrasion on top of the ankle., Summer's sign - Neurological Neuro grossly intact: Yes Cognition: Normal Orientation: AAOx4 Taft Coma Scale Eye Opening: Spontaneous Demarco Coma Scale Verbal: Oriented Taft Coma Scale Motor: Obeys Commands Demarco Coma Scale Total: 15 Speech: Normal Motor strength normal: LUE, RUE, LLE, RLE Sensory: Normal - Psychological Associated symptoms: Normal affect, Normal mood - Skin Skin Temperature: Warm Skin Moisture: Dry Skin Color: Normal Course - Re-evaluation Re-evalutation: 01/29/18 23:04 Patient coming in for a fall possible syncopal episode down 30 steps. Upon examining the patient patient had multiple self-inflicted abdominal lacerations that were superficial requiring no sutures and Steri-Strips patient denies a history of cutting in the past. Also after finding the superficial soft foot lacerations of the abdomen as the patient intentionally fell down the stairs which patient is unclear in her answer. Because of these findings I did have our psychiatric team evaluate the patient collateral was made with family members patient denies any suicidal homicidal ideation and family members deny any concerns Patient's laboratory and radiographical studies not show any signs of acute pathology. Patient was given a tetanus shot is that she is unaware of her tetanus status. Otherwise no clear etiology for the patient's symptoms. There is only slight abrasion to the foot did do a fast examination showing no free fluid in the abdomen with fluid in Morison's pouch no pericardial effusion is noted fluid in splenorenal junction. No definitive bruising on the patient's torso at 100% of the patient fell down 30 flights of stairs Patient discharged home because the family - Vital Signs Vital signs: Temp Pulse Resp BP Pulse Ox 98.6 F 49 L 15 110/60 100 01/29/18 19:30 01/29/18 17:49 01/29/18 19:30 01/29/18 19:30 01/29/18 19:30 - Laboratory Result Diagrams: 01/29/18 16:46 01/29/18 16:46 Laboratory results interpreted by me: 01/29/18 01/29/18 16:23 16:46 Sodium 146.8 H Urine Blood SMALL H Salicylates < 1.0 L Acetaminophen < 10 L Discharge - Discharge Clinical Impression: Multiple abrasions, Self-inflicted injury Syncope Qualifiers: Syncope type: unspecified Qualified Code(s): R55 - Syncope and collapse Condition: Good Disposition: HOME, SELF-CARE Instructions: Abrasions ([facility]), Antibiotic Ointment Protection ([facility]), Contusion ([facility]), Depression ([facility]), Head Injury Precautions ([facility]), Syncopal Episode ([facility]), Tetanus Immunization Given ([facility]) Additional Instructions: Your evaluation today shows no critical pathology. CT scans and x-rays not showing signs of acute injury. Laboratory studies not show any signs of infection electrolyte abnormality. Please make sure you are drinking plenty of fluids to stay hydrated. Return to ER symptoms worsen. Follow-up with your primary care physician in the next 3-5 days. I would recommend placing Neosporin or antibiotic cream on your abrasions of the abdomen.
[2018-01-29 19:40] VITALS: BP 110/60
--- NOTE | 2018-01-29 21:38 | EKG REPORT ---
SEVERITY:- NORMAL ECG - SINUS RHYTHM : Confirmed by: Angela Patel MD 29-Jan-2018 21:37:39
== END 2018-01-29 19:42 | disposition home or self-care (01) ==
LOC: ER 15:15
DX: R55 Syncope and collapse (principal); S90.812A Abrasion, left foot, initial encounter; W10.9XXA Fall (on) (from) unspecified stairs and steps, initial encounter; S31.119A Laceration without foreign body of abdominal wall, unspecified quadrant without penetration into peritoneal cavity, initial encounter; X78.9XXA Intentional self-harm by unspecified sharp object, initial encounter; Y92.009 Unspecified place in unspecified non-institutional (private) residence as the place of occurrence of the external cause; Z90.710 Acquired absence of both cervix and uterus; Z87.442 Personal history of urinary calculi; Z90.49 Acquired absence of other specified parts of digestive tract
CPT/HCPCS: 93005; 99285; 96360; 90471; 36415; 80307 ×4; 84702; 85025; 80053; 81001; 73610; 73562; 70450; 72125; 90715; 93010; J7030

== ENCOUNTER 2018-01-30 12:57 | Emergency (ER) | payer SELFPAY ==
--- NOTE | 2018-01-30 13:17 | ER Document Report ---
ED Medical Screen (RME) - General Chief Complaint: Possible Overdose Stated Complaint: POSSIBLE OVERDOSE Time Seen by Provider: 01/30/18 13:07 Mode of Arrival: Ambulatory Information source: Patient, Relative TRAVEL OUTSIDE OF THE [place] IN LAST 30 DAYS: No - HPI Notes: 01/30/18 13:14 I have greeted and performed a rapid initial assessment of this patient. A comprehensive ED assessment and evaluation of the patient, analysis of test results and completion of the medical decision making process will be conducted by additional ED providers. 37-year-old female presents the emergency department with her for overdose on her prescription medications. Patient has a history of anxiety and depression and is followed by a psychiatrist, Dr. Martin. Patient's son stopped by the house to pick something up and found his mother to be shirtless and not acting like herself. Patient states that she has been feeling suicidal within the last couple of days. notes that she cut herself on her abdomen yesterday. Patient states that she felt like she was crawling out of her skin this morning and she was trying to get the sensation to stop. PHYSICAL EXAMINATION: GENERAL: Flat affect. HEAD: Atraumatic, normocephalic. EYES: Pupils equal round extraocular movements intact, conjunctiva are normal. ENT: Nares patent NECK: Normal range of motion LUNGS: No respiratory distress Musculoskeletal: Normal range of motion NEUROLOGICAL: Normal speech, normal gait. PSYCH: Flat affect. SKIN: Warm, Dry, normal turgor, superficial cut davis on abdomen. - Related Data Allergies/Adverse Reactions: No Known Allergies Allergy (Verified 01/30/18 13:01) Past Medical History - Past Medical History Cardiac Medical History: Denies: Hx Coronary Artery Disease, Hx Heart Attack, Hx Hypertension Pulmonary Medical History: Reports: Hx Pneumonia Denies: Hx Asthma, Hx Bronchitis, Hx COPD Neurological Medical History: Reports: Hx Migraine. Denies: Hx Cerebrovascular Accident, Hx Seizures Renal/ Medical History: Reports: Hx Kidney Stones, Hx Ovarian Cysts. Denies: Hx Peritoneal Dialysis Musculoskeltal Medical History: Reports Hx Arthritis - Rheumatoid arthritis, Reports Hx Fibromyalgia Psychiatric Medical History: Reports: Hx Anxiety, Hx Depression Past Surgical History: Reports: Hx Section - x2, Hx Cholecystectomy, Hx Hysterectomy, Hx Kidney (Renal Surgery) - lithotripsy - Immunizations Immunizations up to date: Yes Hx Diphtheria, Pertussis, Tetanus Vaccination: Yes
[2018-01-30] MEDS ORDERED: NORMAL SALINE 1000 ML 1,000 ML IV ONE (13:38)
--- NOTE | 2018-01-30 13:39 | ER Document Report ---
ED General - General Chief Complaint: Possible Overdose Stated Complaint: POSSIBLE OVERDOSE Time Seen by Provider: 01/30/18 13:07 Mode of Arrival: Ambulatory TRAVEL OUTSIDE OF THE [place] IN LAST 30 DAYS: No - HPI Patient complains to provider of: Suicide attempt Notes: 37-year-old female presents after suicide attempt. Patient overdose approximately 10 AM this morning on BuSpar 15 mg tabs x 6, and Fluvoxamine 100 mg x 15 tabs. Patient found by her son to be acting bizarrely approximately 1 PM. Patient states she took them an attempt to kill herself. Patient is a little somnolent now but does answer questions appropriately. She is afebrile denies tachycardia has no rigidity. Negative clonus ambulating at baseline. MSE 01/30/18 13:14 I have greeted and performed a rapid initial assessment of this patient. A comprehensive ED assessment and evaluation of the patient, analysis of test results and completion of the medical decision making process will be conducted by additional ED providers. 37-year-old female presents the emergency department with her for overdose on her prescription medications. Patient has a history of anxiety and depression and is followed by a psychiatrist, Dr. Martin. Patient's son stopped by the house to pick something up and found his mother to be shirtless and not acting like herself. Patient states that she has been feeling suicidal within the last couple of days. notes that she cut herself on her abdomen yesterday. Patient states that she felt like she was crawling out of her skin this morning and she was trying to get the sensation to stop. - Related Data Allergies/Adverse Reactions: No Known Allergies Allergy (Verified 01/30/18 13:01) Past Medical History - General Information source: Patient, Relative - Social History Smoking Status: Never Smoker Drug Abuse: Prescription drugs Family History: None Patient has suicidal ideation: Yes Patient has homicidal ideation: No - Past Medical History Cardiac Medical History: Denies: Hx Coronary Artery Disease, Hx Heart Attack, Hx Hypertension Pulmonary Medical History: Reports: Hx Pneumonia Denies: Hx Asthma, Hx Bronchitis, Hx COPD Neurological Medical History: Reports: Hx Migraine. Denies: Hx Cerebrovascular Accident, Hx Seizures Renal/ Medical History: Reports: Hx Kidney Stones, Hx Ovarian Cysts. Denies: Hx Peritoneal Dialysis Musculoskeletal Medical History: Reports Hx Arthritis - Rheumatoid arthritis, Reports Hx Fibromyalgia Psychiatric Medical History: Reports: Hx Anxiety, Hx Depression Past Surgical History: Reports: Hx Section - x2, Hx Cholecystectomy, Hx Hysterectomy, Hx Kidney (Renal Surgery) - lithotripsy - Immunizations Immunizations up to date: Yes Hx Diphtheria, Pertussis, Tetanus Vaccination: Yes Review of Systems - Review of Systems Notes: REVIEW OF SYSTEMS: CONSTITUTIONAL: -fevers, -chills EENT: -eye pain, -difficulty swallowing, -nasal congestion CARDIOVASCULAR: -chest pain, -syncope. RESPIRATORY: -cough, -SOB GASTROINTESTINAL: -abdominal pain, -nausea, -vomiting, -diarrhea GENITOURINARY: -dysuria, -hematuria MUSCULOSKELETAL: -back pain, -neck pain SKIN: -rash or skin lesions. HEMATOLOGIC: -easy bruising or bleeding. LYMPHATIC: -swollen, enlarged glands. NEUROLOGICAL: -altered mental status or loss of consciousness, -headache, - neurologic symptoms PSYCHIATRIC: -anxiety, +depression, + suicidal ALL OTHER SYSTEMS REVIEWED AND NEGATIVE. Physical Exam - Notes Notes: PHYSICAL EXAMINATION: GENERAL: Well-appearing, well-nourished and in no acute distress. HEAD: Atraumatic, normocephalic. EYES: Pupils equal round and reactive to light, extraocular movements intact, sclera anicteric, conjunctiva are normal. ENT: nares patent, oropharynx clear without exudates. Moist mucous membranes. NECK: Normal range of motion, supple without lymphadenopathy LUNGS: Breath sounds clear to auscultation bilaterally and equal. No wheezes rales or rhonchi. HEART: Regular rate and rhythm without murmurs ABDOMEN: Soft, nontender, normoactive bowel sounds. No guarding, no rebound. No masses appreciated. EXTREMITIES: Normal range of motion, no pitting or edema. No cyanosis. NEUROLOGICAL: Cranial nerves grossly intact. Normal speech, normal gait. Normal sensory and motor exams., normal DTR, no clonus PSYCH: Normal mood, normal affect. SKIN: Warm, Dry, normal turgor, no rashes or lesions noted. Course - Re-evaluation Re-evalutation: 01/30/18 14:02 Patient has a normal EKG normal QRS, very reassuring physical exam negative clonus, afebrile no altered mental status negative tachycardia. 01/30/18 14:05 Contact Poison Control Center, speak to Jaja. Patient's vital signs EKG evaluation physical exam. We are now 4 hours post ingestion. The BuSpar is mildly sedating is very low dose. Her SSRI ingestion could be more severe. The rest of that observation is 8 hours. At 6 PM patient will be medically clear. Assuming there are no coingestions or other abnormalities found. 01/30/18 14:08 Involuntary commitment paperwork initiated by myself. 01/30/18 14:57 Patient's extensive lab workup unremarkable. Lindsay sites negative acetaminophen negative no electrolyte abnormalities given fluid resuscitation. Reinnervation evaluation of the patient now 5 hours status post ingestion she is feeling much improved. - Laboratory Result Diagrams: 01/30/18 13:49 01/30/18 13:49 Laboratory results interpreted by me: 01/30/18 01/30/18 13:49 13:49 Sodium 145.1 H Chloride 109 H Urine Protein 30 H Urine Urobilinogen 4.0 H Salicylates < 1.0 L Acetaminophen < 10 L - EKG Interpretation by Me Additional EKG results interpreted by me: 01/30/18 14:03 Normal sinus rhythm 70 bpm, normal QRS, normal MA no ST elevations or depressions. Critical Care Note - Critical Care Note Total time excluding time spent on procedures (mins): 39 Comments: multiple calls to poison control center Discharge - Discharge Clinical Impression: Suicide attempt Depression Qualifiers: Depression Type: unspecified Qualified Code(s): F32.9 - Major depressive disorder, single episode, unspecified Disposition: PSYCH HOSP/UNIT
[2018-01-30 14:14] LABS: ABSOLUTE EOSINOPHILS # (AUTO) 0.1 10^3/uL (0.0-0.6); ABSOLUTE LYMPHOCYTES (AUTO) 1.2 10^3/uL (0.5-4.7); ABSOLUTE MONOCYTES (AUTO) 0.5 10^3/uL (0.1-1.4); ABSOLUTE NEUT (AUTO) 4.6 10^3/uL (1.7-8.2); BASOPHILS % (AUTO) 0.7 % (0-2); HEMATOCRIT 39.5 % (36.0-47.0); HEMOGLOBIN 13.2 g/dL (12.0-15.5); LYMPHOCYTES % (AUTO) 18.5 % (13-45); MEAN CORPUSCULAR HEMOGLOBIN 30.8 pg (27.0-33.4); MEAN CORPUSCULAR HGB CONC 33.5 g/dL (32.0-36.0); MEAN CORPUSCULAR VOLUME 92 fl (80-97); MONOCYTES % (AUTO) 7.9 % (3-13); PLATELET COUNT 203 10^3/uL (150-450); RED BLOOD COUNT 4.31 10^6/uL (3.72-5.28); RED CELL DISTRIBUTION WIDTH 13.9 % (11.5-14.0); SEGMENTED NEUTROPHILS % (AUTO) 71.9 % (42-78); TOTAL CELLS COUNTED % (AUTO) 100 %; WHITE BLOOD COUNT 6.4 10^3/uL (4.0-10.5)
[2018-01-30 14:21] LABS: APPEARANCE,URINE SLIGHTLY-CLOUDY; BILIRUBIN,URINE NEGATIVE (NEGATIVE); COLOR,URINE YELLOW; GLUCOSE, URINE NEGATIVE (NEGATIVE); KETONES,URINE NEGATIVE (NEGATIVE); LEUKOCYTE ESTERASE,URINE NEGATIVE (NEGATIVE); NITRITE,URINE NEGATIVE (NEGATIVE); PROTEIN,URINE 30 mg/dL (NEGATIVE); URINE SPECIFIC GRAVITY 1.027
[2018-01-30 14:38] LABS: ACETAMINOPHEN < 10 ug/mL (10-30); ALANINE AMINOTRANSFERASE 14 U/L (9-52); ALBUMIN 3.8 g/dL (3.5-5.0); ALCOHOL < 10 mg/dL (NONE DETECTED); ALKALINE PHOSPHATASE 41 U/L (38-126); ANION GAP 10 (5-19); ASPARTATE AMINO TRANSFERASE 15 U/L (14-36); BILIRUBIN,DIRECT 0.3 mg/dL (0.0-0.4); BILIRUBIN,TOTAL 0.7 mg/dL (0.2-1.3); BLOOD UREA NITROGEN 9 mg/dL (7-20); CALCIUM 8.8 mg/dL (8.4-10.2); CARBON DIOXIDE 26 mmol/L (22-30); CHLORIDE 109 mmol/L (98-107); GLUCOSE 80 mg/dL (75-110); POTASSIUM 3.8 mmol/L (3.6-5.0); SALICYLATE < 1.0 mg/dL (2.0-20.0); SODIUM 145.1 mmol/L (137-145); TOTAL PROTEIN 6.3 g/dL (6.3-8.2)
[2018-01-30 14:55] LABS: URINE AMPHETAMINES SCREEN NEGATIVE; URINE BARBITURATES SCREEN NEGATIVE; URINE BENZODIAZEPINES SCREEN NEGATIVE; URINE COCAINE SCREEN NEGATIVE; URINE MARIJUANA (THC) SCREEN NEGATIVE; URINE METHADONE SCREEN NEGATIVE; URINE PHENCYCLIDINE SCREEN NEGATIVE
--- NOTE | 2018-01-30 15:09 | PSYCHOLOGICAL NOTE ---
Psych Note - Psych Note Psych Note: Reason for consult: Suicidal ideation; intentional overdose Patient's is at bedside per patient's request 37-year-old female presents after suicide attempt. Patient overdose approximately 10 AM this morning on BuSpar 15 mg tabs x 6, and Fluvoxamine 100 mg x 15 tabs. Patient found by her son to be acting bizarrely approximately 1 PM. Patient states she took them an attempt to kill herself. Patient states she "does not know why" she did not tell clinician yesterday she was having thoughts of hurting herself. She states that her anxiety triggered her. She discloses worrying about getting enough sleep but confirms she did receive some sleep last night. When asked if any medications were stopped recently she disclosed that she used to be on trazodone however when she went to her appointment last Saturday they stopped that prescription. Patient's disclosed there was no indication that the patient was suicidal. Patient is alert and orientated to person, place, time and circumstance. Mood is dysphoric with flat affect. Patient endorses suicidal ideation reports intentional overdose. Patient denies homicidal ideation. Delusions are a varus congruent with an intact reality based presentation i.e. organized and linear thought process. Eye contact is poor. Conversational speech is low and difficult to hear at times. Intellectual abilities appear to be within the average range. Attention and concentration are poor. Insight, judgment, impulse control are poor. 311 (F32.9) unspecified depressive disorder per history provided by patient 300.00 (F41.9) unspecified anxiety disorder per history provided by patient Impression\\plan: Patient is recommended for IVC. Patient presented yesterday after falling down some stairs. While patient did have some self-harm maladaptive coping (cutting) she adamantly denied intentionally falling down the stairs and family indicated they had no concerns. Today patient presents after intentional overdose and again patient's family had no indication of patient's mental status. At this time patient is a danger to herself. Patient disclosed that she is going through some medication changes that began January 20, 2018 (ie stopping trazadon) Dr. Mott was consulted and the care management this patient; attending physician is agreement with recommendations and disposition.
[2018-01-30] MEDS ORDERED: HALOPERIDOL LACTATE INJ 5 MG/1 ML VIAL IM ONE (20:23)
--- NOTE | 2018-01-30 20:33 | EKG REPORT ---
SEVERITY:- NORMAL ECG - SINUS RHYTHM : Confirmed by: Angela Patel MD 30-Jan-2018 20:31:59
[2018-01-30] MEDS ORDERED: HYDROXYZINE PAMOATE 50 MG CAPSULE PO ONE (21:50)
[2018-01-31 12:52] VITALS: BP 120/70
--- NOTE | 2018-01-31 13:00 | PSYCHOLOGICAL NOTE ---
Psych Note - Psych Note Psych Note: Reason for consult: Suicidal ideation; intentional overdose 37-year-old female presents after suicide attempt. Patient overdose approximately 10 AM this morning on BuSpar 15 mg tabs x 6, and Fluvoxamine 100 mg x 15 tabs. Patient found by her son to be acting bizarrely approximately 1 PM. Patient states she took them an attempt to kill herself. Conducted checking with patient Clinician asked patient if she actually took the medication she stated she did at which point she stated no. Patient disclosed she did it for attention but " I did not think it would lead to all this." She discloses increase in stress with having multiple houses fall through (she reports they are trying to buy a home). Clinician asked if patient really did accidental fall on the stairs during her previous [facility] visit at which point the patient stated "no I really did fall down the stairs I was in a hurry nap almost fallen multiple times before but this time I really did." When revisiting her first cutting episode 2 days ago she states "I never done cutting before... it hurt... I thought I would get a release but it was just painful... I never want to do it again." Patient's joined patient at bedside per patient's request. Clinician conducted psychoeducation on patient's diagnosis versus expected symptoms (i.e. fear of abandonment). Patient confirms that she frequently will call her just to hear his voice is always concerned about being left. disclosed he will make more an effort to ensure she comes with him when he goes to work (patient was asked to come with him yesterday but she declined) as it is a family run business and the patient can be involved. 301.83 (F60.3) borderline personality disorder 311 (F32.9) unspecified depressive disorder per history provided by patient 300.00 (F41.9) unspecified anxiety disorder per history provided by patient Impression\\plan: Patient is cleared from acute psychiatric services. Patient no longer meets IVC criteria per [place] GS 122C. Patient admits not taking medication in a bed for attention. Patient is under extreme stress currently which has caused an increase in behaviors in connection with her borderline personality disorder. Patient is recommended for outpatient mental health therapy as this is the most effective treatment for a personality disorder. Patient was not receiving therapeutic services because of loss of insurance. She is recommended to follow-up with [facility] for continued mental health treatment. Clinician conducted psychoeducation on patient's diagnosis versus expected symptoms (i.e. fear of abandonment). Dr. Mott was consulted and the care management this patient; attending physician is agreement with recommendations and disposition.
== END 2018-01-31 12:50 | disposition home or self-care (01) ==
LOC: ER 12:57
DX: F32.9 Major depressive disorder, single episode, unspecified (principal); F60.3 Borderline personality disorder; M19.90 Unspecified osteoarthritis, unspecified site; M06.9 Rheumatoid arthritis, unspecified; Z90.49 Acquired absence of other specified parts of digestive tract; Z90.710 Acquired absence of both cervix and uterus
CPT/HCPCS: 93005; 99285; 96372; 36415; 80307 ×4; 83735; 85025; 81025; 80053; 81001; 93010; J1630

== ENCOUNTER 2018-05-17 12:43 | Observation (INO) | payer SELFPAY ==
--- NOTE | 2018-05-17 12:52 | ER Document Report ---
Doctor's Note Notes: 05/17/18 12:48 Patient was seen very briefly by myself, in the triage area, had symptoms of right-sided hemiparesis that started around 11 AM or 1130 this morning. NIH stroke scale score: 9 for right arm and leg weakness, facial droop, and decreased sensation on the right compared to the left. Patient emergently taken to the CT scanner.
--- NOTE | 2018-05-17 13:11 | RADIOLOGY REPORT (SQ) ---
EXAM DESCRIPTION: CT HEAD WITHOUT COMPLETED DATE/TIME: 05/17/2018 12:56 pm REASON FOR STUDY: POSSIBLE STROKE . Right-sided weakness. Stroke alert. COMPARISON: CT brain 01/29/2018, 03/07/2017, 11/05/2015. TECHNIQUE: Axial images acquired through the brain without intravenous contrast. Images reviewed wi th bone, brain and subdural windows. Images stored on PACS. All CT scanners at this facility use dose modulation, iterative reconstruction, and/or weight based d osing when appropriate to reduce radiation dose to as low as reasonably achievable (ALARA). [facility]: Dose Right [facility]: CareDose [facility]: Dose Right [facility]: Teradose 4D [facility]: Smart Technologies RADIATION DOSE: CT Rad equipment meets quality standard of care and radiation dose reduction techniq ues were employed. CTDIvol: 53.2 mGy. DLP: 1044 mGy-cm. mGy. LIMITATIONS: None. FINDINGS: VENTRICLES: Normal size and contour. CEREBRUM: No mass effect. No hemorrhage. No midline shift. Normal nguyen/white matter differentiatio n. No evidence for acute territorial infarction. CEREBELLUM: No mass effect. No hemorrhage. No alteration of density. No evidence for acute infarct ion. EXTRAAXIAL SPACES: No fluid collections. ORBITS AND GLOBE: Symmetrical contour of the globes. CALVARIUM: No depressed skull fracture. PARANASAL SINUSES: No air-fluid level. SOFT TISSUES: No hematoma. IMPRESSION: NO ACUTE INTRACRANIAL IMAGING FINDINGS. EVIDENCE OF ACUTE STROKE: NO. COMMENT: Pertinent findings on the imaging study reported as a CRITICAL RESULT to RANDA Helton 3:05 hrs on 05/17/2018. Category of Critical Result: Stroke Alert Quality ID # [id number]: Final reports with documentation of one or more dose reduction techniques (e.g., Au tomated exposure control, adjustment of the mA and/or kV according to patient size, use of iterative reconstruction technique) TECHNICAL DOCUMENTATION: JOB ID: [id number] 2010 [employer]- All Rights Reserved Reading location - IP/workstation name: [email or web address]
[2018-05-17 13:13] LABS: INTERNATIONAL RATION (INR) 0.93; PROTHROMBIN TIME 12.9 SEC (11.4-15.4)
[2018-05-17 13:16] LABS: ABSOLUTE BASOPHILS # (AUTO) 0.1 10^3/uL (0.0-0.2); ABSOLUTE EOSINOPHILS # (AUTO) 0.2 10^3/uL (0.0-0.6); ABSOLUTE LYMPHOCYTES (AUTO) 1.5 10^3/uL (0.5-4.7); ABSOLUTE MONOCYTES (AUTO) 0.7 10^3/uL (0.1-1.4); ABSOLUTE NEUT (AUTO) 5.8 10^3/uL (1.7-8.2); BASOPHILS % (AUTO) 1.2 % (0-2); EOSINOPHILS % (AUTO) 2.2 % (0-6); HEMATOCRIT 41.4 % (36.0-47.0); HEMOGLOBIN 14.1 g/dL (12.0-15.5); LYMPHOCYTES % (AUTO) 18.4 % (13-45); MEAN CORPUSCULAR HEMOGLOBIN 31.9 pg (27.0-33.4); MEAN CORPUSCULAR HGB CONC 33.9 g/dL (32.0-36.0); MEAN CORPUSCULAR VOLUME 94 fl (80-97); MONOCYTES % (AUTO) 8.2 % (3-13); PLATELET COUNT 213 10^3/uL (150-450); TOTAL CELLS COUNTED % (AUTO) 100 %; WHITE BLOOD COUNT 8.3 10^3/uL (4.0-10.5)
--- NOTE | 2018-05-17 13:17 | ER Document Report ---
ED Neuro Symptoms/Deficit - General Chief Complaint: S/S of Possible Stroke Stated Complaint: WEAKNESS Time Seen by Provider: 05/17/18 12:49 TRAVEL OUTSIDE OF THE [place] IN LAST 30 DAYS: No - HPI Notes: Patient is a 37-year-old female that presents to the emergency department for chief complaint of right-sided numbness and weakness. Patient was last seen normal by family at midnight last night. Her saw her this morning and noticed she looked more tired than usual. Patient was talking to her son while driving on face time. He noticed that she did not appear well and told her to last puller the car. Patient then dropped the phone and started complaining of numbness on her right arm and leg. This was around 1138 this morning. Patient denies history of stroke or heart disease with her or her family. She currently is complaining of right arm and leg numbness and weakness. She does not take any blood thinning medications. She does state that she has rheumatoid arthritis which causes her to trip and fall frequently. She states she had a fall and hit the front of her head on the toilet 4 days ago. She denied any loss of consciousness or symptoms after the fall. Patient does report yesterday she had headaches and episodes of blurry vision that lasted a few minutes at a time and then completely resolved. The headache was diffuse and achy. There was no aggravating or relieving factors. She had 4-5 of these episodes yesterday. Past Medical History: Myalgia, rheumatoid arthritis Past Surgical History: Reviewed in chart Social History: Reviewed in chart Family History: Reviewed and noncontributory for presenting illness Allergies: Reviewed, see documented allergy list. REVIEW OF SYSTEMS: CONSTITUTIONAL : No fever No chills No diaphoresis No recent illness EENT: No vision changes No congestion No sore throat CARDIOVASCULAR: No chest pain No palpitations RESPIRATORY: No shortness of breath No cough No difficulty breathing GASTROINTESTINAL: No abdominal pain No nausea No vomiting No diarrhea GENITOURINARY: No dysuria No hematuria No difficulty urinating MUSCULOSKELETAL: No back pain No leg pain No arm pain SKIN: No rashes No lesions LYMPHATIC: No swollen, enlarged glands. NEUROLOGICAL: No lightheadedness headache weakness paresthesias PSYCHIATRIC: No anxiety No depression PHYSICAL EXAMINATION: Vital signs reviewed, nursing noted reviewed. GENERAL: Well-appearing, well-nourished and in no acute distress. HEAD: Atraumatic, normocephalic. EYES: Eyes appear normal, extraocular movements intact, sclera anicteric, conjunctiva are normal. ENT: nares patent, oropharynx clear without exudates. Moist mucous membranes. NECK: Normal range of motion, supple without lymphadenopathy LUNGS: Breath sounds clear to auscultation bilaterally and equal. No wheezes rales or rhonchi. HEART: Regular rate and rhythm without murmurs ABDOMEN: Soft, nontender, normoactive bowel sounds. No rebound, guarding, or rigidity. No masses appreciated. EXTREMITIES: Nontender, good range of motion, no pitting or edema. NEUROLOGICAL: Subjective decreased sensation right arm and leg. Inconsistent motor exam. Patient when asked to hold right arm at extension has minimal effort against gravity however when distracted and speaking she is moving her right arm and touching her face with her right arm. When asked to lift right leg off the cot she has no movement and would not attempt to wiggle her right toes however she was able to transfer herself from the CT bed to the cot and did lift her right leg completely off the bed and pushed down to transfer her weight. PSYCH: Normal mood, normal affect. SKIN: Warm, Dry, normal turgor, no rashes or lesions noted on exposed skin - Related Data Allergies/Adverse Reactions: No Known Allergies Allergy (Verified 01/30/18 13:01) Past Medical History - Social History Smoking Status: Never Smoker Family History: None - Past Medical History Cardiac Medical History: Denies: Hx Coronary Artery Disease, Hx Heart Attack, Hx Hypertension Pulmonary Medical History: Reports: Hx Pneumonia Denies: Hx Asthma, Hx Bronchitis, Hx COPD Neurological Medical History: Reports: Hx Migraine. Denies: Hx Cerebrovascular Accident, Hx Seizures Renal/ Medical History: Reports: Hx Kidney Stones, Hx Ovarian Cysts. Denies: Hx Peritoneal Dialysis Musculoskeletal Medical History: Reports Hx Arthritis - Rheumatoid arthritis, Reports Hx Fibromyalgia Psychiatric Medical History: Reports: Hx Anxiety, Hx Depression Past Surgical History: Reports: Hx Section - x2, Hx Cholecystectomy, Hx Hysterectomy, Hx Kidney (Renal Surgery) - lithotripsy - Immunizations Immunizations up to date: Yes Hx Diphtheria, Pertussis, Tetanus Vaccination: Yes Review of Systems - Review of Systems Notes: Dictated Physical Exam - Notes Notes: Dictated Course - Re-evaluation Re-evalutation: 05/17/18 13:19 Vitals reviewed. Nursing notes reviewed. Patient's NIH is 5 however her physical exam is inconsistent. I suspect lack of effort when asked to do motor function. She would not move her feet or attempt to move her right leg at all against gravity but was able to completely lifted off the bed as well as bend her knee, placed the plantar surface of her foot on the cot and push up to move her hips over. After witnessing this I asked her to bend her knee and lift her leg up and she again would have no movement. There was no downward movement on the left leg to suggest an attempt at lifting her right leg. Patient also has limited motor on her right arm however when distracted and speaking she is able to move her right arm up to her face and move her hat. She is not a TPA candidate as acute ischemic stroke is not suspected, her symptoms are minor and improving. 05/17/18 14:12 Patient's lab work is unremarkable. CT noncontrast of her head and CT angios of the head and neck are unremarkable. Patient was reevaluated again. She still states she cannot move her right leg when I attempt to do strength testing however she is able to lift it off the bed. I had her swing her legs all over the edge of the bed she and she was able to completely lift the right leg off the bed. She was able to stand and put weight on her right leg. She does not have flaccid right leg paralysis. She had normal strength in her right upper extremity while holding onto me during the attempt at ambulation. Conversion disorder is a possibility and psych was consulted. Patient is failing her swallow study and still is unable to ambulate. She will be admitted to the hospital for monitoring of her inability to ambulate and new numbness. Laboratory 05/17/18 05/17/18 05/17/18 12:55 12:56 12:56 WBC 8.3 RBC 4.40 Hgb 14.1 Hct 41.4 MCV 94 MCH 31.9 MCHC 33.9 RDW 15.0 H Plt Count 213 Seg Neutrophils % 70.0 Lymphocytes % 18.4 Monocytes % 8.2 Eosinophils % 2.2 Basophils % 1.2 Absolute Neutrophils 5.8 Absolute Lymphocytes 1.5 Absolute Monocytes 0.7 Absolute Eosinophils 0.2 Absolute Basophils 0.1 PT INR Sodium 142.5 Potassium 4.0 Chloride 105 Carbon Dioxide 31 H Anion Gap 7 BUN 15 Creatinine 0.79 Est GFR ( Amer) > 60 Est GFR (Non-Af Amer) > 60 Glucose 69 L POC Glucose 68 L Calcium 9.2 Total Bilirubin 0.6 Direct Bilirubin 0.2 Neonat Total Bilirubin Not Reportable Neonat Direct Bilirubin Not Reportable Neonat Indirect Bili Not Reportable AST 25 ALT 13 Alkaline Phosphatase 54 Creatine Kinase 136 H Troponin I Total Protein 6.1 L Albumin 3.6 Serum HCG, Qual 05/17/18 05/17/18 05/17/18 12:56 12:56 12:56 WBC RBC Hgb Hct MCV MCH MCHC RDW Plt Count Seg Neutrophils % Lymphocytes % Monocytes % Eosinophils % Basophils % Absolute Neutrophils Absolute Lymphocytes Absolute Monocytes Absolute Eosinophils Absolute Basophils PT 12.9 INR 0.93 Sodium Potassium Chloride Carbon Dioxide Anion Gap BUN Creatinine Est GFR ( Amer) Est GFR (Non-Af Amer) Glucose POC Glucose Calcium Total Bilirubin Direct Bilirubin Neonat Total Bilirubin Neonat Direct Bilirubin Neonat Indirect Bili AST ALT Alkaline Phosphatase Creatine Kinase Troponin I < 0.012 Total Protein Albumin Serum HCG, Qual NEGATIVE Head CT 05/17/18 00:00 IMPRESSION: NO ACUTE INTRACRANIAL IMAGING FINDINGS. EVIDENCE OF ACUTE STROKE: NO. Chest X-Ray 05/17/18 12:54 IMPRESSION: NO ACUTE RADIOGRAPHIC FINDING IN THE CHEST. Head CTA 05/17/18 13:02 IMPRESSION: NO CTA EVIDENCE OF STENOSIS OR ANEURYSM OF THE [place] OF BLACK. Neck CTA 05/17/18 13:02 IMPRESSION: NORMAL CTA OF THE EXTRA-CRANIAL CAROTID AND VERTEBRAL ARTERIES. 05/17/18 14:55 Case discussed with Griselda Franco who will admit the patient for further care - Laboratory Result Diagrams: 05/17/18 12:56 05/17/18 12:56 - EKG Interpretation by Me Additional EKG results interpreted by me: 05/17/18 14:18 Interpreted by myself 1332: Normal sinus rhythm, rate 71, normal axis, no ectopy, no ST elevation ED NIH Stroke Scale - NIH Stroke Scale When completed:: Before Alteplase *: 1. NIH scale should be completed with appropriate accompanying assessment tools. *: 2. The NIH should reflect what the patient is capable of doing and should not be coached by the clinician. 1a. Level of Consciousness: 0=Alert;keenly responsive -: 1=Drowsy -: 2=Obtunded -: 3=Coma/unresponsive or reflex to noxious stimuli. 1a. Responses: 0 1b. Orientation Questions: a. What month is it? -: b. How old are you? -: 0=Answers both questions correctly. -: 1=Answers one question correctly or patient is intubated or has orotracheal trauma. -: 2=Answers neither question correctly. 1b. Responses: 0 1c. Response to commands: a. Open and close eyes? -: b. [employer] Rep[employer]inist and release hand? -: Credit is given despite weakness. Demonstration of task is permitted. Substitute command if hands cannot be used. -: 0=Performs both tasks correctly -: 1=Performs one task correctly -: 2=Performs neither task correctly 1c. Responses: 0 2. Gaze: Establish eye contact and instruct patient to "Follow my finger" -: 0=Normal -: 1=Partial gaze palsy. Gaze is abnormal in one or both eyes, but where forced deviation or total gaze paresis is not present. -: 2=Forced deviation or total gaze paresis. 2. Responses: 0 3. Visual Diamond: Sees fingers in all four quadrants. -: 0=No visual loss. -: 1=Partial hemianopsia. -: 2=Complete hemianopsia. -: 3=Bilateral hemianopsia (including Cortical blindness) 3. Responses: 0 4. Facial Movement: Instruct patient to: -: a. Show me your teeth -: b. Raise your eyebrows -: c. Close your eyes -: d. Smile -: 0=Normal symmetrical movement -: 1=Minor paralysis (flattened nasolabial fold, asymmetry on smiling). -: 2=Partial paralysis (total or near total paralysis of lower face). -: 3=Complete paralysis of upper and lower face 4. Responses: 0 5. Motor functions (left arm): Alternate sides and extend each arm with palms down (90 degrees if sitting or 45 degrees for supine). -: 0=No drift;limb holds for full 10 seconds. -: 1=Drift; limb holds but drifts down before full 10 seconds, but does not hit bed. -: 2=Some effort against gravity; limb cannot get to or maintain position. -: 3=No effort against gravity; limb falls. -: 4=No movement. -: UN=Amputation, joint fusion, explain in comments. 5. Responses (left arm): 0 5. Motor Functions (right arm): Alternate sides and extend each arm with palms down (90 degrees if sitting or 45 degrees for supine). -: 0=No drift;limb holds for full 10 seconds. -: 1=Drift; limb holds but drifts down before full 10 seconds, but does not hit bed. -: 2=Some effort against gravity; limb cannot get to or maintain position. -: 3=No effort against gravity; limb falls. -: 4=No movement. -: UN=Amputation, joint fusion, explain in comments. 5. Responses (right arm): 2 6. Motor Functions (left leg): With patient lying supine, alternate sides and extend each leg (30 degrees always while supine). -: 0=No drift, leg holds position for full 5 seconds -: 1=Drift; leg falls before full 5 seconds but does not hit bed. -: 2=Some effort against gravity, leg falls to bed but some effort against gravity. -: 3=No effort against gravity, leg falls to bed immediately. -: 4=No movement. -: UN=Amputation, joint fusion; explain in comments. 6. Responses (left leg): 0 6. Motor Functions (right leg): With patient lying supine, alternate sides and extend each leg (30 degrees always while supine). -: 0=No drift, leg holds position for full 5 seconds -: 1=Drift; leg falls before full 5 seconds but does not hit bed. -: 2=Some effort against gravity, leg falls to bed but some effort against gravity. -: 3=No effort against gravity, leg falls to bed immediately. -: 4=No movement. -: UN=Amputation, joint fusion; explain in comments. 6. Responses (right leg): 2 7. Limb Ataxia: With eyes open instruct patient to: -: a. "Touch your finger to your nose". -: b. "Touch your heel to your caba" -: 0=Absent -: 1=Present in one limb. -: 2=Present in two limbs. -: UN=Amputation or joint fusion; explain in comments. 7. Responses: 0 8. Sensory: Test sensation using pinprick or noxious stimuli. Test as many body parts as possible. -: 0=Normal;no sensory loss -: 1=Mile to moderate sensory loss (patient feels pin prick but is less sharp on affected side). -: 2=Severe or total sensory loss. 8. Responses: 1 - Patient's physical exam is inconsistent. Her symptoms are minor and improving 9. Best Language: Instruct patient to: -: a. "Describe what you see in this picture." -: b. "Name the items in this picture." -: c. "Read these sentences." -: 0=No aphasia, normal -: 1=Mild to moderate aphasia. -: 2=Severe aphasia -: 3=Mute, global aphasia, no usable speech or auditory comprehension. 9. Responses: 0 10. Articulation, Dysarthia: Instruct patient to: -: "Read these words" or "Repeat these words" -: 0=Normal -: 1=Mild to moderate; patient may slur some words but can be understood without difficulty. -: 2=Severe; patients speech so slurred as to be unintelligible in the absence of dysphasia. -: UN=Intubated or other physical barrier, explain in comments. 10. Responses: 0 11. Extinction or inattention: 0=No abnormality -: 1= Visual, tactile, auditory, spatial, or personal inattention or extinction to bilateral simulation in one or the sensory modalities. -: 2=Profound jonna-inattention or jonna-inattention to more than one modality; does not recognize own hand. 11. Responses: 0 Total Score: 5 Discharge - Discharge Clinical Impression: Numbness of right lower extremity, Right leg weakness Condition: Stable Disposition: ADMITTED OBSERVATION Admitting Provider: Hospitalist Unit Admitted: IMCU Referrals: GRZEGORZ CRUZ MD [Primary Care Provider] - Follow up as needed
[2018-05-17 13:25] LABS: ALANINE AMINOTRANSFERASE 13 U/L (9-52); ALBUMIN 3.6 g/dL (3.5-5.0); ALKALINE PHOSPHATASE 54 U/L (38-126); ANION GAP 7 (5-19); ASPARTATE AMINO TRANSFERASE 25 U/L (14-36); BILIRUBIN,DIRECT 0.2 mg/dL (0.0-0.4); BILIRUBIN,TOTAL 0.6 mg/dL (0.2-1.3); BLOOD UREA NITROGEN 15 mg/dL (7-20); CALCIUM 9.2 mg/dL (8.4-10.2); CARBON DIOXIDE 31 mmol/L (22-30); CHLORIDE 105 mmol/L (98-107); CREATINE KINASE 136 U/L (30-135); GLUCOSE 69 mg/dL (75-110); SODIUM 142.5 mmol/L (137-145); TOTAL PROTEIN 6.1 g/dL (6.3-8.2)
--- NOTE | 2018-05-17 13:46 | RADIOLOGY REPORT (SQ) ---
EXAM DESCRIPTION: CHEST SINGLE VIEW COMPLETED DATE/TIME: 05/17/2018 1:19 pm REASON FOR STUDY: right side weakness COMPARISON: 10/30/2017 EXAM PARAMETERS: NUMBER OF VIEWS: One view. TECHNIQUE: Single frontal radiographic view of the chest acquired. RADIATION DOSE: NA LIMITATIONS: None. FINDINGS: LUNGS AND PLEURA: No opacities, masses or pneumothorax. No pleural effusion. MEDIASTINUM AND HILAR STRUCTURES: No masses. Contour normal. HEART AND VASCULAR STRUCTURES: Heart normal in size. Normal vasculature. BONES: S shaped curvature of the visualized thoracolumbar spine. HARDWARE: None in the chest. OTHER: No other significant finding. IMPRESSION: NO ACUTE RADIOGRAPHIC FINDING IN THE CHEST. TECHNICAL DOCUMENTATION: JOB ID: [id number] [employer]- All Rights Reserved Reading location - IP/workstation name: [email or web address]
--- NOTE | 2018-05-17 13:49 | RADIOLOGY REPORT (SQ) ---
EXAM DESCRIPTION: CTA HEAD COMPLETED DATE/TIME: 05/17/2018 1:18 pm REASON FOR STUDY: trauma COMPARISON: CT head 05/17/2018. TECHNIQUE: Post IV contrast scanning, thin section axial imaging through the brain to evaluate the a rterial structures. Source and MIP images are saved and reviewed on PACS. Advanced 3D imaging as volume-rendering, MIPs, SSD performed? yes All CT scanners at this facility use dose modulation, iterative reconstruction, and/or weight based d osing when appropriate to reduce radiation dose to as low as reasonably achievable (ALARA). [facility]: Dose Right [facility]: CareDose [facility]: Dose Right [facility]: Teradose 4D [facility]: Sentrinsic CONTRAST TYPE AND DOSE: 70 mL Omnipaque 350- low osmolar. RENAL FUNCTION: None required. The patient is less than 50 years old. LIMITATIONS: None. FINDINGS: [place]: The anterior, middle, posterior cerebral arteries are all patent. No ev idence of aneurysm or focal stenosis. POSTERIOR CIRCULATION: The distal vertebral arteries are patent as is the basilar artery. No evidenc e for aneurysm. BRAIN: No gross enhancing lesions as visualized. BONES: No depressed calvarial fracture. SINUSES: No air-fluid level. IMPRESSION: NO CTA EVIDENCE OF STENOSIS OR ANEURYSM OF THE [place]. TECHNICAL DOCUMENTATION: JOB ID: [id number] Quality ID # 436: Final reports with documentation of one or more dose reduction techniques (e.g., Au tomated exposure control, adjustment of the mA and/or kV according to patient size, use of iterative reconstruction technique) 2010 [employer]- All Rights Reserved Reading location - IP/workstation name: [email or web address]
--- NOTE | 2018-05-17 13:53 | RADIOLOGY REPORT (SQ) ---
EXAM DESCRIPTION: CTA NECK COMPLETED DATE/TIME: 05/17/2018 1:18 pm REASON FOR STUDY: trauma COMPARISON: CTA head and CTA neck 05/17/2018. TECHNIQUE: Axial dynamic scanning technique with dynamic contrast enhancement through the extra-line assembler aircraft nial carotid and vertebral arteries. Multiplanar reconstruction. 3-D MIPS and Volume-rendered imag es acquired at the workstation and saved to PACS. Images are reviewed in soft tissue, bone, lung w indows. All CT scanners at this facility use dose modulation, iterative reconstruction, and/or weight based d osing when appropriate to reduce radiation dose to as low as reasonably achievable (ALARA). [facility]: Dose Right [facility]: CareDose [facility]: Dose Right [facility]: Teradose 4D [facility]: Medium CONTRAST TYPE AND DOSE: contrast/concentration: Isovue 350.00 mg/ml; Total Contrast Delivered: 70.0 ml; Total Saline Delivered: 75.0 ml RENAL FUNCTION: None required. The patient is less than 50 years old. LIMITATIONS: None. FINDINGS: RIGHT CAROTIDS: Patent common, internal and external carotid arteries without suggestion o f significant stenosis or irregular plaque. No dissection. RIGHT VERTEBRAL: Patent. No dissection. LEFT CAROTIDS: Patent common, internal and external carotid arteries without suggestion of significan t stenosis or irregular plaque. No dissection. LEFT VERTEBRAL: Patent. No dissection. OTHER: 3-D reconstructions confirm findings. IMPRESSION: NORMAL CTA OF THE EXTRA-CRANIAL CAROTID AND VERTEBRAL ARTERIES. COMMENT: Quality ID #[id number]: Measurements of distal internal carotid diameter were used as the denomina tor for stenosis measurement. TECHNICAL DOCUMENTATION: JOB ID: [id number] Quality ID # [id number]: Final reports with documentation of one or more dose reduction techniques (e.g., Au tomated exposure control, adjustment of the mA and/or kV according to patient size, use of iterative reconstruction technique) 2010 [employer]- All Rights Reserved Reading location - IP/workstation name: [email or web address]
--- NOTE | 2018-05-17 14:16 | EKG REPORT ---
SEVERITY:- NORMAL ECG - SINUS RHYTHM : Confirmed by: Varun Mcmahan 17-May-2018 14:15:35
[2018-05-17 15:21] LABS: APPEARANCE,URINE CLEAR; BILIRUBIN,URINE NEGATIVE (NEGATIVE); COLOR,URINE YELLOW; GLUCOSE, URINE NEGATIVE (NEGATIVE); KETONES,URINE NEGATIVE (NEGATIVE); LEUKOCYTE ESTERASE,URINE NEGATIVE (NEGATIVE); NITRITE,URINE NEGATIVE (NEGATIVE); PROTEIN,URINE NEGATIVE (NEGATIVE); UROBILINOGEN,URINE NEGATIVE mg/dL (<2.0)
[2018-05-17 15:37] LABS: URINE AMPHETAMINES SCREEN NEGATIVE; URINE BARBITURATES SCREEN NEGATIVE; URINE BENZODIAZEPINES SCREEN NEGATIVE; URINE COCAINE SCREEN NEGATIVE; URINE MARIJUANA (THC) SCREEN UNCONFIRMED POSITIVE; URINE METHADONE SCREEN NEGATIVE; URINE PHENCYCLIDINE SCREEN NEGATIVE
[2018-05-17] MEDS ORDERED: DEXTROSE 50%-WATER 25 GM/50 ML DISP.SYRIN IV PRN ×2 (15:49)
[2018-05-17] MEDS ORDERED: DEXTROSE 40% GEL 15 GM TUBE PO PRN ×2 (15:49)
[2018-05-17] MEDS ORDERED: GLUCAGON,HUMAN RECOMB 1 MG INJ SUBCUT PRN (15:49)
[2018-05-17] MEDS ORDERED: ONDANSETRON HCL INJ/PF 4 MG/2 ML SDV IV PRN (15:49)
[2018-05-17] MEDS ORDERED: ACETAMINOPHEN 650 MG SUPP.RECT PR PRN (15:49)
[2018-05-17] MEDS ORDERED: HALOPERIDOL LACTATE INJ 5 MG/1 ML VIAL IV PRN (15:56)
[2018-05-17 16:46] VITALS: BP 112/75
[2018-05-17] MEDS ORDERED: ASPIRIN 300 MG SUPP, RECTAL PR SCH (17:00)
--- NOTE | 2018-05-17 17:12 | H&P/Discharge Summary ---
Discharge Summary Admission Date/PCP: 05/17/18 14:56 Discharge Date: 05/17/18 - AGAINST MEDICAL ADVICE Resuscitation Status: Full Code - Discharge Diagnosis (1) Right sided weakness Is this a current diagnosis for this admission?: Yes Summary: The patient reported sudden onset of right-sided weakness of both upper and lower extremity this morning while driving. She states that the weakness was associated with a typical headache and that she has experienced similar symptoms in the past. On exam, her symptoms of weakness were intermittent and inconsistent. She was offered observational admission with speech therapy, physical therapy, occupational therapy evaluations. During my exam, the patient was agreeable to staying but considering leaving. Approximately 1 hour later, nursing notified that the patient had left AGAINST MEDICAL ADVICE. (2) Depression Is this a current diagnosis for this admission?: Yes Summary: Follow up with outpatient mental health provider as scheduled. Continue home medication regiment as prescribed. Home Medications: Zolpidem Tartrate [Ambien] 20 mg PO QHS 10/10/11 Buspirone HCl 30 mg PO TID 03/07/17 Doxepin HCl 50 mg PO QHS 05/17/18 Fluvoxamine Maleate 200 mg PO DAILY 05/17/18 Propranolol HCl [Inderal 10 mg Tablet] 10 mg PO Q8 05/17/18 Allergies/Adverse Reactions: No Known Allergies Allergy (Verified 01/30/18 13:01) Discharge Diet: As Tolerated Discharge Activity: Activity As Tolerated History of Present Illness Admission Date/PCP: 05/17/18 14:56 History of Present Illness: AVILA DAVIS is a 37 year old female with a past medical history of fibromyalgia, depression, anxiety, borderline personality disorder presented to the emergency department today with a complaint of intermittent right-sided weakness, forgetfulness, and headache. Onset of symptoms occurred while face timing her son while driving. She was able to safely pulley man her car and wait for her son to arrive to assist her to the emergency department. She did not lose consciousness or demonstrate seizure activity at any time. Since her arrival, her symptoms have been intermittent and inconsistent. Evaluation in the emergency department revealed unremarkable laboratory workup with the exception of positive marijuana on urine drug screen. Her EKG, chest x -ray, head CT, and head CTA and neck CTA were all benign. Psychiatry met with the patient due to concern of possible conversion disorder. Psychiatry met with the patient and did clear her from any suicidal or homicidal ideation; she is not IVC appropriate. At the time of this dictation, their formal note is not available. She was referred to the hospitalist service for observational admission and management of the above stated complaints. Past Medical History Cardiac Medical History: Denies: Coronary Artery Disease, Myocardial Infarction, Hypertension Pulmonary Medical History: Reports: Pneumonia Denies: Asthma, Bronchitis, Chronic Obstructive Pulmonary Disease (COPD) EENT Medical History: Reports: None Neurological Medical History: Reports: Migraine Denies: Seizures Endocrine Medical History: Reports: None Malignancy Medical History: Reports: None GI Medical History: Reports: None Musculoskeltal Medical History: Reports: Arthritis - Rheumatoid arthritis, Fibromyalgia Skin Medical History: Reports: None Psychiatric Medical History: Reports: Depression, General Anxiety Disorder, Personality Disorder Traumatic Medical History: Reports: None Hematology: Reports: Anemia Infectious Medical History: Reports: None Past Surgical History Past Surgical History: Reports: Section - x2, Cholecystectomy, Hysterectomy Social History Information Source: Patient Lives with: Family Smoking Status: Never Smoker Hx Recreational Drug Use: Yes Drugs: Marijuana - Advance Directive Resuscitation Status: Full Code Family History Family History: None Parental Family History Reviewed: Yes Children Family History Reviewed: Yes Sibling(s) Family History Reviewed.: Yes Review of Systems Constitutional: PRESENT: headache(s). ABSENT: chills, fever(s), weight gain, weight loss Eyes: ABSENT: visual disturbances Ears: ABSENT: hearing changes Cardiovascular: ABSENT: chest pain, dyspnea on exertion, edema, orthropnea, palpitations Respiratory: ABSENT: cough, hemoptysis Gastrointestinal: ABSENT: abdominal pain, constipation, diarrhea, hematemesis, hematochezia, nausea, vomiting Genitourinary: ABSENT: dysuria, hematuria Musculoskeletal: ABSENT: joint swelling Integumentary: ABSENT: rash, wounds Neurological: PRESENT: as per HPI, abnormal gait, confusion, numbness, weakness. ABSENT: abnormal speech, dizziness, focal weakness, syncope Psychiatric: PRESENT: as per HPI, anxiety, depression. ABSENT: homidical ideation, suicidal ideation Endocrine: ABSENT: cold intolerance, heat intolerance, polydipsia, polyuria Hematologic/Lymphatic: ABSENT: easy bleeding, easy bruising Physical Exam Vital Signs: Temp Pulse Resp BP Pulse Ox 98.2 F 69 15 112/75 99 05/17/18 16:00 05/17/18 15:00 05/17/18 16:15 05/17/18 16:15 05/17/18 16:15 General appearance: PRESENT: no acute distress, well-developed, well-nourished Head exam: PRESENT: atraumatic, normocephalic Eye exam: PRESENT: conjunctiva pink, EOMI, PERRLA. ABSENT: scleral icterus Ear exam: PRESENT: normal external ear exam Mouth exam: PRESENT: moist, tongue midline Neck exam: ABSENT: carotid bruit, JVD, lymphadenopathy, thyromegaly Respiratory exam: PRESENT: clear to auscultation sreekanth. ABSENT: rales, rhonchi, wheezes Cardiovascular exam: PRESENT: RRR, +S1, +S2. ABSENT: diastolic murmur, rubs, systolic murmur Pulses: PRESENT: normal dorsalis pedis pul Vascular exam: PRESENT: normal capillary refill GI/Abdominal exam: PRESENT: normal bowel sounds, soft. ABSENT: distended, guarding, mass, organolmegaly, rebound, tenderness Rectal exam: PRESENT: deferred Extremities exam: PRESENT: full ROM. ABSENT: calf tenderness, clubbing, pedal edema Neurological exam: PRESENT: alert, awake, oriented to person, oriented to place , oriented to time, oriented to situation, CN II-XII grossly intact, other - Subjective numbness to right upper and lower extremities. Weak right hammer runner as compared to the left. On straight leg lift of left leg, the patient was noted to have increased muscle tone and extension of the right into the stretcher strong enough to indent the mattress. However, she then was unable to lift her right leg up; right toe flexion equal to left. No facial droop or slurred speech noted.. ABSENT: motor sensory deficit Psychiatric exam: PRESENT: appropriate affect, normal mood. ABSENT: homicidal ideation, suicidal ideation Skin exam: PRESENT: dry, intact, warm. ABSENT: cyanosis, rash Results Impressions: Head CT 05/17/18 00:00 IMPRESSION: NO ACUTE INTRACRANIAL IMAGING FINDINGS. EVIDENCE OF ACUTE STROKE: NO. Chest X-Ray 05/17/18 12:54 IMPRESSION: NO ACUTE RADIOGRAPHIC FINDING IN THE CHEST. Head CTA 05/17/18 13:02 IMPRESSION: NO CTA EVIDENCE OF STENOSIS OR ANEURYSM OF THE [place]. Neck CTA 05/17/18 13:02 IMPRESSION: NORMAL CTA OF THE EXTRA-CRANIAL CAROTID AND VERTEBRAL ARTERIES. Qualifiers - * PATIENT BEING DISCHARGED WITH ANY OF THE FOLLOWING DIAGNOSIS: No Assessment & Plan - Time Time Spent: 50 to 70 Minutes Medications reviewed and adjusted accordingly: Yes - Plan Summary Plan Summary: The patient was admitted under observational status for right-sided weakness associated with forgetfulness and a headache. Her exam was inconsistent and intermittent, however, she did fail her swallow screening. She was placed in n.p.o. status and speech, physical therapy, and occupational therapy evaluations were ordered. The patient was offered an MRI for TIA workup, however, she declined the MRI stating that unless I was able to fully sedate her she would be unable to tolerate the exam. The remaining TIA order set was placed. The patient left AGAINST MEDICAL ADVICE while still in the emergency department prior to her transfer to the IMCU unit.
[2018-05-17] MEDS ORDERED: (PENDING PHARMACY ID) (Buspirone Hcl [Buspirone Hcl] 30 MG) PO SCH (18:00)
[2018-05-17] MEDS ORDERED: BUSPIRONE HCL 10 MG TABLET PO SCH (22:00)
[2018-05-17] MEDS ORDERED: SIMVASTATIN 40 MG TABLET PO SCH (22:00)
[2018-05-17] MEDS ORDERED: DOXEPIN HCL 25 MG CAPSULE PO SCH (22:00)
[2018-05-17] MEDS ORDERED: PROPRANOLOL HCL 10 MG TABLET PO SCH (22:00)
[2018-05-17] MEDS ORDERED: FAMOTIDINE INJ/PF 20 MG/2 ML SDV IV SCH (22:00)
[2018-05-17] MEDS ORDERED: (PENDING PHARMACY ID) (Doxepin Hcl [Doxepin Hcl] 50 MG) PO SCH (22:00)
[2018-05-17] MEDS ORDERED: HEPARIN SOD (PORCINE) 5,000 UNIT/ML 1 ML SYRINGE SUBCUT SCH (22:00)
--- NOTE | 2018-05-18 08:21 | PSYCHOLOGICAL NOTE ---
Psych Note - Psych Note Psych Note: Patient was cleared from mental [facility] 05/17/2018
[2018-05-18] MEDS ORDERED: FLUVOXAMINE MALEATE 200 MG PO SCH (10:00)
--- NOTE | 2018-05-25 15:42 | PSYCHOLOGICAL NOTE ---
Psych Note - Psych Note Date seen by psych provider: 05/17/18 Time seen by psych provider: 03:00 Psych Note: Reason for consult: anxiety Consent for permissions: Bobby, son at bedside, ASSISTED PT OUT OF CAR. REPORTS INTERMITTENT EPISODES STARTED YESTERDAY. STATES TODAY AROUND 1130 COMPLETE RIGHT SIDE WEAKNES WITH A SEVERE HEADACHE. PT TAKEN DIRECTED TO TRIAGE AND ASSESSED BY DR BURGOS. Patient states that she was returning home from a short trip when she started to feel weak. Patient states that she was driving and talking to son on Face time and he instructed her to fur puller. Patient's son then went to warehouse order picker the patient and brought her to the hospital. Patient reports that she does not remember getting into her son's car or the drive to the hospital. Patient states that something like this has never happened before. Patient disclosed that she did consume a "couple" of beers last night at dinner and took her normal dosage of medicine. Patient is alert and oriented to person, place, time and circumstance. Patient demonstrates a clear, organized and linear thought process. Eye Contact is well maintained. Conversational speech was within normal rate, tone, and prosody. Intellectual abilities appear to be within the average range. Attention and concentration are good. Insight, judgment, impulse control are fair. No medication recommendations at this time Diagnosis 301.83 (F60.3) Borderline Personality Disorder per patient report Impression/Plan: Patient is cleared from acute psychiatric services. Patient denies suicidal ideation. Patient denies homicidal ideation. Patient is being seen for mental health therapy at [facility] and is encouraged to follow up with her provider. Dr. Mott was consulted on the care and management of this patient; attending physician is in agreement with recommendations and disposition.
== END 2018-05-17 16:54 | disposition left against medical advice (07) ==
LOC: ER 12:43 → EH 14:56
PROVIDERS: ADMIT Internal Medicine; ATTEND Internal Medicine
DX: R53.1 Weakness (principal); R51 Headache; F32.9 Major depressive disorder, single episode, unspecified; Z53.21 Procedure and treatment not carried out due to patient leaving prior to being seen by health care provider; M06.9 Rheumatoid arthritis, unspecified; R78.4 Finding of other drugs of addictive potential in blood; R41.0 Disorientation, unspecified; R20.0 Anesthesia of skin; R26.9 Unspecified abnormalities of gait and mobility; F41.1 Generalized anxiety disorder; F60.3 Borderline personality disorder; R29.6 Repeated falls; Z91.81 History of falling; Z79.899 Other long term (current) drug therapy; Z90.49 Acquired absence of other specified parts of digestive tract; Z86.69 Personal history of other diseases of the nervous system and sense organs
CPT/HCPCS: 93005; 99285; 36415; 82962; 80307 ×2; 82550; 84703; 85025; 85610; 80053; 81001; 84484; 71045; 70450; 70496; 70498; 93010; G0378

== ENCOUNTER 2018-05-19 10:23 | Emergency (ER) | payer SELFPAY ==
[2018-05-19] MEDS ORDERED: NORMAL SALINE 1000 ML 1,000 ML IV ONE (10:45)
--- NOTE | 2018-05-19 10:52 | ER Document Report ---
ED General - General Stated Complaint: WEAKNESS Time Seen by Provider: 05/19/18 10:27 TRAVEL OUTSIDE OF THE [place] IN LAST 30 DAYS: No - HPI Notes: Patient is a 37-year-old female with a history of multiple autoimmune diseases including rheumatoid, renal, fibromyalgia, trichotillomania who presents to the ED by EMS complaining of fall prior to arrival outside in the leaves. Patient states that she woke up in the leaves and called 911. Patient states that she has had multiple episodes like this in the past. Patient states that she does have a headache, but does not believe that she hit her head very hard. Patient states that she has had headaches like this in the past. Patient states that she has been eating and drinking without any difficulties. She is urinating normally and having normal bowel movements. Denies any drug allergies. Denies any fever, neck pain, changes in vision/speech/mentation/hearing, URI, sore throat, chest pain, palpitations, syncope, cough, shortness of breath, wheeze, dyspnea, abdominal pain, nausea/vomiting/diarrhea, urinary retention, dysuria, hematuria, loss of control of bowel or bladder, numbness/tingling, saddle anesthesia, muscle paralysis/weakness, or rash. Patient had a recent visit [address] cervical spine/head, and CT angiogram of the head that was unremarkable. She did leave AMA after being admitted that she was "scared." - Related Data Allergies/Adverse Reactions: No Known Allergies Allergy (Verified 01/30/18 13:01) Past Medical History - Social History Smoking Status: Unknown if Ever Smoked Frequency of alcohol use: Occasional Drug Abuse: Marijuana - occ, last 2-3 weeks ago Family History: None - Past Medical History Cardiac Medical History: Denies: Hx Coronary Artery Disease, Hx Heart Attack, Hx Hypertension Pulmonary Medical History: Reports: Hx Pneumonia Denies: Hx Asthma, Hx Bronchitis, Hx COPD Neurological Medical History: Reports: Hx Migraine. Denies: Hx Cerebrovascular Accident, Hx Seizures Renal/ Medical History: Reports: Hx Kidney Stones, Hx Ovarian Cysts. Denies: Hx Peritoneal Dialysis Musculoskeletal Medical History: Reports Hx Arthritis - Rheumatoid arthritis, Reports Hx Fibromyalgia Psychiatric Medical History: Reports: Hx Anxiety, Hx Depression, Hx Personality Disorder Past Surgical History: Reports: Hx Section - x2, Hx Cholecystectomy, Hx Hysterectomy, Hx Kidney (Renal Surgery) - lithotripsy - Immunizations Immunizations up to date: Yes Hx Diphtheria, Pertussis, Tetanus Vaccination: Yes Review of Systems - Review of Systems -: Yes All other systems reviewed and negative Physical Exam - Notes Notes: PHYSICAL EXAMINATION: GENERAL: Well-appearing, well-nourished and in no acute distress. A&Ox4. Answers questions appropriately. HEAD: Atraumatic, normocephalic. Non-tender. No ng sign EYES: Pupils equal round and reactive to light, extraocular movements intact, sclera anicteric, conjunctiva are normal. No raccoon eyes/entrapment. No nystagmus. ENT: EAC clear b/l. TM's intact b/l without erythema, fluid, or perforation. Nares patent and without discharge. oropharynx clear without exudates. No tonsilar hypertrophy or erythema. Moist mucous membranes. No sinus tenderness. No hemotympanum/CSF discharge. NECK: Normal range of motion, supple without lymphadenopathy. No rigidity. No midline tenderness. Spurling negative. NEXUS negative. Chest: No flail chest. equal rise/fall. Non-tender LUNGS: Breath sounds clear to auscultation bilaterally and equal. No wheezes rales or rhonchi. HEART: Regular rate and rhythm without murmurs, rubs, gallops. ABDOMEN: Soft, nontender, nondistended abdomen. No guarding, no rebound. No masses appreciated. Normal bowel sounds present. No CVA tenderness bilaterally. No ecchymosis Musculoskeletal: Ext's b/l: FROM to passive/active. Strength 5+/5. No deficits noted. No bony tenderness of extremities. Back: FROM to passive/active. Strength 5+/5. No vertebral point tenderness, stepoffs, or deformities. No other bony tenderness or ecchymosis. Extremities: No cyanosis, clubbing, or edema b/l. Peripheral pulses 2+. Capillary refill less than 2 seconds. NEUROLOGICAL: NIH 0. GCS 15. Cranial nerves grossly intact. Normal speech, normal gait. Normal sensory, motor exams. Reflexes 2+ b/l. MARK's negative. Pronator drift negative. Heel/caba, finger/nose wnl. Pt is doing similar findings to previous exam 2 days ago where she will minimally activate her rt arm/leg, but then when she is distracted moves them through FROM w/o any difficulty or signs of weakness (i.e. pushing her hair from her face/head, sitting upright and lifting her legs to site on the side of the bed, standing and balancing w/o difficulty). PSYCH: Normal mood, normal affect. SKIN: Warm, Dry, normal turgor, no rashes or lesions noted. Course - Re-evaluation Re-evalutation: 05/19/18 10:[address] Wilson. We will obtain basic labs/imaging and have Psych consult with the patient again. If unremarkable workup we may consider discharge as she has no focal neurological findings and her issues have been ongoing chronic intermittent. 05/19/18 13:34 Patient is an afebrile, well-hydrated, 37-year-old female who presents to the ED for headache and possible syncopal episode, suspect benign at this time. Her symptoms are chronic intermittent in nature. Vitals are acceptable without any significant tachycardia, tachypnea, or hypoxia. PE is otherwise unremarkable for any focal neurological deficits. NIH 0, GCS 15, cranial nerves grossly intact, next is criteria negative. CT scan of the head was obtained and was unremarkable. CBC, CMP, hCG, urinalysis, urine drug screen, EtOH are grossly unremarkable aside from known marijuana. EKG/orthostatics unremarkable. Patient is nontoxic-appearing and is tolerating p.o. without difficulties. She has not had any deterioration throughout her stay. She was evaluated by her psychology team who stated that she is at baseline and she has a psych provider, [facility]. She has not have any SI/HI. No other auditory or visual hallucinations. No further labs or imaging warranted at this time. Low suspicion for any acute psychosis, acute glaucoma, temporal arteritis, meningitis, intracranial hemorrhage, ischemic stroke, or fracture at this time. Patient is aware that this condition can change from initial presentation and that she needs to monitor symptoms closely for any acute changes. Conservative measures for symptoms. Recheck with your PCM in 2-3 days. Return to the ED with any worsening/concerning symptoms otherwise as reviewed in discharge. Patient is in agreement. - Laboratory Result Diagrams: 05/19/18 12:05 05/19/18 12:05 Laboratory results interpreted by me: 05/19/18 05/19/18 12:05 12:05 RDW 14.8 H Carbon Dioxide 33 H Discharge - Discharge Clinical Impression: Headache Qualifiers: Headache type: unspecified Headache chronicity pattern: acute headache Intractability: not intractable Qualified Code(s): R51 - Headache Episode of syncope Qualifiers: Syncope type: unspecified Qualified Code(s): R55 - Syncope and collapse Condition: Stable Disposition: HOME, SELF-CARE Additional Instructions: Maintain adequate fluid and food intake Take home medications as directed Healthy diet Exercise regularly as able Monitor blood pressure daily and keep a log Monitor symptoms for any acute changes Recheck with your PCM in 2-3 days Return to the ED with any worsening symptoms and/or development of fever, headache, changes in behavior/mentation/vision/speech, chest pain, palpitations , syncope, shortness of breath, trouble breathing, abdominal pain, n/v/d, blood in stool/urine, loss of control of bowel/bladder, urinary retention, muscle weakness/paralysis, saddle anesthesia, numbness/tingling, or other worsening symptoms that are concerning to you. Forms: Smoking Cessation Education Referrals: [facility] [Provider Group] - Follow up in 3-5 days
--- NOTE | 2018-05-19 11:16 | RADIOLOGY REPORT (SQ) ---
EXAM DESCRIPTION: CT HEAD WITHOUT COMPLETED DATE/TIME: 05/19/2018 10:59 am REASON FOR STUDY: fall, DICK COMPARISON: 05/17/2018 TECHNIQUE: Axial images acquired through the brain without intravenous contrast. Images reviewed wi th bone, brain and subdural windows. Additional sagittal and coronal reconstructions were generated. Images stored on PACS. All CT scanners at this facility use dose modulation, iterative reconstruction, and/or weight based d osing when appropriate to reduce radiation dose to as low as reasonably achievable (ALARA). [facility]: Dose Right [facility]: CareDose [facility]: Dose Right [facility]: Teradose 4D [facility]: Smart [employer] RADIATION DOSE: CT Rad equipment meets quality standard of care and radiation dose reduction techniq ues were employed. CTDIvol: 53.2 mGy. DLP: 1044 mGy-cm. mGy. LIMITATIONS: None. FINDINGS: VENTRICLES: Normal size and contour. CEREBRUM: No masses. No hemorrhage. No midline shift. No evidence for acute infarction. Normal gra y/white matter differentiation. No areas of low density in the white matter. CEREBELLUM: No masses. No hemorrhage. No alteration of density. No evidence for acute infarction. EXTRAAXIAL SPACES: No fluid collections. No masses. ORBITS AND GLOBE: No intra- or extraconal masses. Normal contour of globe without masses. CALVARIUM: No fracture. PARANASAL SINUSES: No fluid or mucosal thickening. SOFT TISSUES: No mass or hematoma. OTHER: No other significant finding. IMPRESSION: No significant intracranial abnormalities were identified. Findings as noted above. EVIDENCE OF ACUTE STROKE: NO. COMMENT: Quality ID # [id number]: Final reports with documentation of one or more dose reduction techniques (e.g., Automated exposure control, adjustment of the mA and/or kV according to patient size, use of iterative reconstruction technique) TECHNICAL DOCUMENTATION: JOB ID: [id number] [employer]- All Rights Reserved Reading location - IP/workstation name: [email or web address]
[2018-05-19 12:37] LABS: ABSOLUTE EOSINOPHILS # (AUTO) 0.1 10^3/uL (0.0-0.6); ABSOLUTE LYMPHOCYTES (AUTO) 1.3 10^3/uL (0.5-4.7); ABSOLUTE MONOCYTES (AUTO) 0.4 10^3/uL (0.1-1.4); ABSOLUTE NEUT (AUTO) 3.7 10^3/uL (1.7-8.2); BASOPHILS % (AUTO) 0.8 % (0-2); EOSINOPHILS % (AUTO) 2.5 % (0-6); HEMATOCRIT 39.5 % (36.0-47.0); HEMOGLOBIN 13.5 g/dL (12.0-15.5); LYMPHOCYTES % (AUTO) 24.3 % (13-45); MEAN CORPUSCULAR HGB CONC 34.1 g/dL (32.0-36.0); MEAN CORPUSCULAR VOLUME 94 fl (80-97); MONOCYTES % (AUTO) 6.4 % (3-13); PLATELET COUNT 194 10^3/uL (150-450); RED BLOOD COUNT 4.21 10^6/uL (3.72-5.28); RED CELL DISTRIBUTION WIDTH 14.8 % (11.5-14.0); TOTAL CELLS COUNTED % (AUTO) 100 %; WHITE BLOOD COUNT 5.5 10^3/uL (4.0-10.5)
[2018-05-19 12:40] LABS: APPEARANCE,URINE SLIGHTLY-CLOUDY; BILIRUBIN,URINE NEGATIVE (NEGATIVE); COLOR,URINE YELLOW; GLUCOSE, URINE NEGATIVE (NEGATIVE); KETONES,URINE NEGATIVE (NEGATIVE); LEUKOCYTE ESTERASE,URINE NEGATIVE (NEGATIVE); NITRITE,URINE NEGATIVE (NEGATIVE); PROTEIN,URINE NEGATIVE (NEGATIVE); URINE SPECIFIC GRAVITY 1.012; UROBILINOGEN,URINE NEGATIVE mg/dL (<2.0)
[2018-05-19 12:44] LABS: INTERNATIONAL RATION (INR) 0.91; PROTHROMBIN TIME 12.7 SEC (11.4-15.4)
[2018-05-19 12:45] LABS: PARTIAL THROMBOPLASTIN TIME 27.4 SEC (23.5-35.8)
[2018-05-19 12:47] LABS: ALANINE AMINOTRANSFERASE 19 U/L (9-52); ALBUMIN 3.8 g/dL (3.5-5.0); ALKALINE PHOSPHATASE 55 U/L (38-126); ANION GAP 7 (5-19); ASPARTATE AMINO TRANSFERASE 22 U/L (14-36); BILIRUBIN,DIRECT 0.1 mg/dL (0.0-0.4); BILIRUBIN,TOTAL 0.5 mg/dL (0.2-1.3); BLOOD UREA NITROGEN 17 mg/dL (7-20); CALCIUM 9.1 mg/dL (8.4-10.2); CARBON DIOXIDE 33 mmol/L (22-30); CHLORIDE 104 mmol/L (98-107); GLUCOSE 82 mg/dL (75-110); POTASSIUM 3.9 mmol/L (3.6-5.0); SODIUM 143.6 mmol/L (137-145); TOTAL PROTEIN 6.4 g/dL (6.3-8.2)
[2018-05-19 12:49] LABS: ALCOHOL < 10 mg/dL (NONE DETECTED)
[2018-05-19 12:53] LABS: URINE AMPHETAMINES SCREEN NEGATIVE; URINE BARBITURATES SCREEN NEGATIVE; URINE BENZODIAZEPINES SCREEN NEGATIVE; URINE COCAINE SCREEN NEGATIVE; URINE MARIJUANA (THC) SCREEN UNCONFIRMED POSITIVE; URINE METHADONE SCREEN NEGATIVE; URINE PHENCYCLIDINE SCREEN NEGATIVE
[2018-05-19] MEDS ORDERED: KETOROLAC TROMETHAMINE INJ/PF 30 MG/1 ML SDV IV ONE (13:41)
--- NOTE | 2018-05-19 13:54 | PSYCHOLOGICAL NOTE ---
Psych Note - Psych Note Date seen by psych provider: 05/19/18 Time seen by psych provider: 11:00 Psych Note: Reason for Consult:Concern for access to resources Patient disclosed that she came to [facility] ED because she thinks she passed out because she woke up and move the leaves outside. She confirms her is currently not home. She states that he did get a new job and was away for a while going through training however has returned and started his new job. She disclosed that her and her have moved out of her mother's home and are living in their own home now. She denies any stressors or concerns. She confirms she is not started therapeutic services citing concern of new insurance starting once her has been working long up with a new company. Clinician explained that if the patient finds a provider that accepts both her current and new insurance and will be a smooth transition; patient agrees. Clinician and patient had in-depth discussion about patient's symptomology and the importance of therapeutic services. Patient is alert and orientated to person, place, time and circumstance. Mood is euthymic with congruent affect. Patient denies suicidal and homicidal ideation. Delusions are absent behaviors congruent with an intact reality based presentation i.e. organized and linear thought process. Eye contact was well-maintained. Conversational speech was within normal rate, tone and prosody. Intellectual abilities appear to be within the average range. Attention and concentration are good. Insight, judgment, impulse control are fair. no medications are recommended at this time 301.83 (F60.3) borderline personality disorder 311 (F32.9) unspecified depressive disorder per history provided by patient 300.00 (F41.9) unspecified anxiety disorder per history provided by patient Impression\plan: Patient is cleared from acute psychiatric services. Patient has an outpatient provider with [facility] her last appointment was 05/09/2018. She confirms she has not started therapeutic services and is still only receiving medication management. Clinician highly encouraged patient to start engaging in therapeutic services; psychoeducation conducted on her diagnosis and importance of cognitive behavioral therapy. Patient engaged with clinician and discussed positive skills she is using to help with her symptoms (i.e to do lists to keep busy so she doesn't focus on the clock and her being at work). Patient denies thoughts of wanting to harm herself or others. Referral for community paramedics will be submitted because of her resent high number of emergency department visits. Dr. Mott was consulted and the care management this patient; attending physician is agreement with recommendations and disposition.
[2018-05-19 14:52] VITALS: BP 113/74
--- NOTE | 2018-05-19 21:54 | EKG REPORT ---
SEVERITY:- NORMAL ECG - SINUS RHYTHM : Confirmed by: Angela Patel MD 19-May-2018 21:53:26
== END 2018-05-19 15:06 | disposition home or self-care (01) ==
LOC: ER 10:23
DX: R51 Headache (principal); R55 Syncope and collapse; F12.10 Cannabis abuse, uncomplicated
CPT/HCPCS: 93005; 99285; 96361; 96374; 36415; 80307 ×2; 84703; 85025; 85610; 85730; 80053; 81001; 70450; 93010; J1885; J7030

== ENCOUNTER 2018-05-31 17:02 | Emergency (ER) | payer SELFPAY ==
[2018-05-31] MEDS ORDERED: NORMAL SALINE 1000 ML 1,000 ML IV ONE (17:20)
[2018-05-31 17:39] LABS: ABSOLUTE BASOPHILS # (AUTO) 0.1 10^3/uL (0.0-0.2); ABSOLUTE EOSINOPHILS # (AUTO) 0.2 10^3/uL (0.0-0.6); ABSOLUTE LYMPHOCYTES (AUTO) 2.4 10^3/uL (0.5-4.7); ABSOLUTE MONOCYTES (AUTO) 0.7 10^3/uL (0.1-1.4); ABSOLUTE NEUT (AUTO) 6.7 10^3/uL (1.7-8.2); EOSINOPHILS % (AUTO) 1.5 % (0-6); HEMATOCRIT 46.5 % (36.0-47.0); HEMOGLOBIN 15.4 g/dL (12.0-15.5); LYMPHOCYTES % (AUTO) 24.1 % (13-45); MEAN CORPUSCULAR HEMOGLOBIN 31.6 pg (27.0-33.4); MEAN CORPUSCULAR HGB CONC 33.1 g/dL (32.0-36.0); MEAN CORPUSCULAR VOLUME 95 fl (80-97); MONOCYTES % (AUTO) 7.1 % (3-13); PLATELET COUNT 273 10^3/uL (150-450); RED BLOOD COUNT 4.88 10^6/uL (3.72-5.28); RED CELL DISTRIBUTION WIDTH 14.2 % (11.5-14.0); SEGMENTED NEUTROPHILS % (AUTO) 66.3 % (42-78); TOTAL CELLS COUNTED % (AUTO) 100 %; WHITE BLOOD COUNT 10.1 10^3/uL (4.0-10.5)
--- NOTE | 2018-05-31 17:39 | EKG REPORT ---
SEVERITY:- NORMAL ECG - SINUS RHYTHM : Confirmed by: Trent Metz MD 31-May-2018 17:39:04
[2018-05-31 17:49] LABS: ALANINE AMINOTRANSFERASE 8 U/L (9-52); ALBUMIN 4.8 g/dL (3.5-5.0); ALKALINE PHOSPHATASE 59 U/L (38-126); ASPARTATE AMINO TRANSFERASE 38 U/L (14-36); BILIRUBIN,DIRECT 0.3 mg/dL (0.0-0.4); BILIRUBIN,TOTAL 0.7 mg/dL (0.2-1.3); BLOOD UREA NITROGEN 12 mg/dL (7-20); CALCIUM 9.6 mg/dL (8.4-10.2); GLUCOSE 90 mg/dL (75-110); POTASSIUM 4.3 mmol/L (3.6-5.0)
[2018-05-31] MEDS ORDERED: KETOROLAC TROMETHAMINE INJ/PF 30 MG/1 ML SDV IV ONE (17:51)
[2018-05-31] MEDS ORDERED: METOCLOPRAMIDE HCL INJ/PF 10 MG/2 ML SDV IV ONE (17:51)
[2018-05-31] MEDS ORDERED: DEXAMETHASONE SOD PHOS INJ 10 MG/1 ML VIAL IV ONE (17:52)
--- NOTE | 2018-05-31 17:53 | ER Document Report ---
ED General - General Chief Complaint: Probable Seizure Stated Complaint: POSSIBLE SEIZURE Time Seen by Provider: 05/31/18 17:20 Notes: Patient is a 37-year-old female with fibromyalgia, depression, anxiety that presents to the emergency department for chief complaint of seizure. According to the patient's son who witnessed this, it occurred about 30 minutes prior to ED arrival, the patient had called him into the room stating that she was not feeling well and she held the side of her head, and then she started having generalized tonic-clonic convulsions, and stated that she was "foaming at the mouth". Patient is now complaining of a headache, that is holocephalic, which she currently rates as a 6 out of 10, and complaining of body aches all over. She denies prior history of seizures in the past, does have a history of migraine headaches in the past, depression and anxiety. The son thinks this episode lasted less than 1 minute, she is currently alert and oriented and does not appear postictal, but she did bite the right side of her tongue.. Past Medical History: Fibromyalgia, rheumatoid arthritis, depression, anxiety Past Surgical History: Cholecystectomy, , hysterectomy Social History: Denies current tobacco, illicit drug use, admits to alcohol use. Family History: Reviewed and noncontributory for presenting illness Allergies: Reviewed, see documented allergy list. REVIEW OF SYSTEMS: Other than noted above, the 12 point review of systems was reviewed with the patient and were negative, all pertinent findings are included in the HPI. PHYSICAL EXAMINATION: Vital signs reviewed, nursing noted reviewed. GENERAL: Well-appearing, well-nourished and appears uncomfortable. HEAD: Atraumatic, normocephalic. EYES: Eyes appear normal, extraocular movements intact, sclera anicteric, conjunctiva are normal. ENT: nares patent, oropharynx clear without exudates. Moist mucous membranes. Their is a small tongue laceration on the right lateral aspect of the tongue. NECK: Normal range of motion, supple without lymphadenopathy LUNGS: Breath sounds clear to auscultation bilaterally and equal. No wheezes rales or rhonchi. HEART: Regular rate and rhythm without murmurs ABDOMEN: Soft, nontender, normoactive bowel sounds. No rebound, guarding, or rigidity. No masses appreciated. EXTREMITIES: Generalized body tenderness, nonfocal of the bilateral upper and lower extremities, good range of motion, no pitting or edema. NEUROLOGICAL: No focal neurological deficits. Moves all extremities spontaneously Motor and sensory grossly intact on exam. PSYCH: Normal mood, normal affect. SKIN: Warm, Dry, normal turgor, no rashes or lesions noted on exposed skin TRAVEL OUTSIDE OF THE [place] IN LAST 30 DAYS: No - Related Data Allergies/Adverse Reactions: No Known Allergies Allergy (Verified 01/30/18 13:01) Past Medical History - Social History Smoking Status: Never Smoker Chew tobacco use (# tins/day): No Frequency of alcohol use: Heavy Drug Abuse: Marijuana Family History: None Patient has suicidal ideation: No Patient has homicidal ideation: No - Past Medical History Cardiac Medical History: Denies: Hx Coronary Artery Disease, Hx Heart Attack, Hx Hypertension Pulmonary Medical History: Reports: Hx Pneumonia Denies: Hx Asthma, Hx Bronchitis, Hx COPD Neurological Medical History: Reports: Hx Migraine. Denies: Hx Cerebrovascular Accident, Hx Seizures Renal/ Medical History: Reports: Hx Kidney Stones, Hx Ovarian Cysts. Denies: Hx Peritoneal Dialysis Musculoskeletal Medical History: Reports Hx Arthritis - Rheumatoid arthritis, Reports Hx Fibromyalgia Psychiatric Medical History: Reports: Hx Anxiety, Hx Depression, Hx Personality Disorder Past Surgical History: Reports: Hx Section - x2, Hx Cholecystectomy, Hx Hysterectomy, Hx Kidney (Renal Surgery) - lithotripsy - Immunizations Immunizations up to date: Yes Hx Diphtheria, Pertussis, Tetanus Vaccination: Yes Physical Exam - Vital signs Vitals: Resp Pulse Ox 14 95 05/31/18 17:21 05/31/18 17:21 Course - Re-evaluation Re-evalutation: Patient seen and examined vital signs reviewed. Laboratory data and imaging were ordered as appropriate for the patient's presenting symptoms and complaint, with consideration of any critical or life threatening conditions that may be associated with their obtained history and exam as noted above. Patient was treated with IV fluids, Toradol, and she is also given a dose of p.o. Robaxin Results were reviewed when available and demonstrated unremarkable workup, negative CT imaging, blood work was unremarkable as well The patient was re-evaluated and was improved, discussed with her at length, new onset seizure, and seizure precautions, she is advised that she should not be driving any vehicles. Or operating any machinery, she understands this and agrees. Advised that if she has any repeat symptoms or seizures that she needs to come back to the emergency department to be reevaluated. Evaluation was most consistent with new onset seizure Results were discussed with the patient at this point, after careful consideration I feel that that patient can be discharged from the emergency department, the patient was educated treatments and reasons to return to the emergency department based on their presumed diagnosis as noted above, they were advised to followup with a primary care physician in 2-3 days. Patient was agreeable to plan of care. *Note is created using voice recognition software and may contain spelling, syntax or grammatical errors. Laboratory 05/31/18 05/31/18 05/31/18 16:49 16:49 16:49 WBC 10.1 RBC 4.88 Hgb 15.4 Hct 46.5 MCV 95 MCH 31.6 MCHC 33.1 RDW 14.2 H Plt Count 273 Seg Neutrophils % 66.3 Lymphocytes % 24.1 Monocytes % 7.1 Eosinophils % 1.5 Basophils % 1.0 Absolute Neutrophils 6.7 Absolute Lymphocytes 2.4 Absolute Monocytes 0.7 Absolute Eosinophils 0.2 Absolute Basophils 0.1 Sodium 143.9 Potassium 4.3 Chloride 105 Carbon Dioxide 19 L Anion Gap 20 H BUN 12 Creatinine 0.79 Est GFR ( Amer) > 60 Est GFR (Non-Af Amer) > 60 Glucose 90 Calcium 9.6 Total Bilirubin 0.7 Direct Bilirubin 0.3 Neonat Total Bilirubin Not Reportable Neonat Direct Bilirubin Not Reportable Neonat Indirect Bili Not Reportable AST 38 H ALT 8 L Alkaline Phosphatase 59 Troponin I Total Protein 8.0 Albumin 4.8 Serum HCG, Qual NEGATIVE Urine Color Urine Appearance Urine pH Ur Specific [place] Urine Protein Urine Glucose (UA) Urine Ketones Urine Blood Urine Nitrite Urine Bilirubin Urine Urobilinogen Ur Leukocyte Esterase Urine WBC (Auto) Urine RBC (Auto) Squamous Epi Cells Auto Urine Mucus (Auto) Urine Ascorbic Acid Urine Opiates Screen Urine Methadone Screen Ur Barbiturates Screen Ur Phencyclidine Scrn Ur Amphetamines Screen U Benzodiazepines Scrn Urine Cocaine Screen U Marijuana (THC) Screen 05/31/18 05/31/18 05/31/18 16:49 20:01 20:01 WBC RBC Hgb Hct MCV MCH MCHC RDW Plt Count Seg Neutrophils % Lymphocytes % Monocytes % Eosinophils % Basophils % Absolute Neutrophils Absolute Lymphocytes Absolute Monocytes Absolute Eosinophils Absolute Basophils Sodium Potassium Chloride Carbon Dioxide Anion Gap BUN Creatinine Est GFR ( Amer) Est GFR (Non-Af Amer) Glucose Calcium Total Bilirubin Direct Bilirubin Neonat Total Bilirubin Neonat Direct Bilirubin Neonat Indirect Bili AST ALT Alkaline Phosphatase Troponin I < 0.012 Total Protein Albumin Serum HCG, Qual Urine Color YELLOW Urine Appearance CLOUDY Urine pH 5.0 Ur Specific [place] 1.018 Urine Protein NEGATIVE Urine Glucose (UA) NEGATIVE Urine Ketones NEGATIVE Urine Blood NEGATIVE Urine Nitrite NEGATIVE Urine Bilirubin NEGATIVE Urine Urobilinogen NEGATIVE Ur Leukocyte Esterase NEGATIVE Urine WBC (Auto) 3 Urine RBC (Auto) 0 Squamous Epi Cells Auto 14 Urine Mucus (Auto) MANY Urine Ascorbic Acid NEGATIVE Urine Opiates Screen NEGATIVE Urine Methadone Screen NEGATIVE Ur Barbiturates Screen NEGATIVE Ur Phencyclidine Scrn NEGATIVE Ur Amphetamines Screen NEGATIVE U Benzodiazepines Scrn NEGATIVE Urine Cocaine Screen NEGATIVE U Marijuana (THC) Screen UNCONFIRMED POSITIVE Head CT 05/31/18 17:21 IMPRESSION: NORMAL BRAIN CT WITHOUT CONTRAST. EVIDENCE OF ACUTE STROKE: NO. Cervical Spine CT 05/31/18 17:51 IMPRESSION: NO ACUTE OR SIGNIFICANT FINDINGS IN THE CERVICAL SPINE. - Vital Signs Vital signs: Temp Pulse Resp BP Pulse Ox 16 104/66 99 05/31/18 20:09 05/31/18 20:09 05/31/18 20:09 - Laboratory Result Diagrams: 05/31/18 16:49 05/31/18 16:49 Laboratory results interpreted by me: 05/31/18 05/31/18 16:49 16:49 RDW 14.2 H Carbon Dioxide 19 L Anion Gap 20 H AST 38 H ALT 8 L - EKG Interpretation by Me Additional EKG results interpreted by me: EKG demonstrates sinus rhythm with a ventricular rate of 77 bpm, normal axis, normal intervals, no evidence of acute ischemia on this EKG, this is compared with prior EKG from 05/19/2018 Discharge - Discharge Clinical Impression: Seizure Condition: Stable Disposition: HOME, SELF-CARE Instructions: New Seizure ([facility]) Additional Instructions: PLEASE FOLLOW UP WITH NEUROLOGY Call for appointment [facility]rology [address] [place] [address]. [place] [address] Please return to the emergency department if you have any worsening, or concern of your symptoms. Please return to the emergency department if you develop chest pain, difficulty breathing, severe abdominal pain, or ongoing vomiting. Please follow-up with your primary care physician in 2-3 days and any other recommended physicians. If prescribed, take all medications as directed. If you have any questions or concerns do not hesitate to return the emergency department for evaluation. Prescriptions: Methocarbamol [Robaxin 500 mg Tablet] 500 mg PO TID PRN #20 tablet PRN Reason: muscle cramping
[2018-05-31 17:54] LABS: CARBON DIOXIDE 19 mmol/L (22-30); CHLORIDE 105 mmol/L (98-107); SODIUM 143.9 mmol/L (137-145)
[2018-05-31 17:56] LABS: ANION GAP 20 (5-19)
--- NOTE | 2018-05-31 18:49 | RADIOLOGY REPORT (SQ) ---
EXAM DESCRIPTION: CT HEAD WITHOUT COMPLETED DATE/TIME: 05/31/2018 6:22 pm REASON FOR STUDY: seizure COMPARISON: Concurrent cervical spine TECHNIQUE: Axial images acquired through the brain without intravenous contrast. Images reviewed wi th bone, brain and subdural windows. Additional sagittal and coronal reconstructions were generated. Images stored on PACS. All CT scanners at this facility use dose modulation, iterative reconstruction, and/or weight based d osing when appropriate to reduce radiation dose to as low as reasonably achievable (ALARA). [facility]: Dose Right [facility]: CareDose [facility]: Dose Right [facility]: Teradose 4D [facility]: [employer] RADIATION DOSE: CT Rad equipment meets quality standard of care and radiation dose reduction techniq ues were employed. CTDIvol: 53.2 mGy. DLP: 991 mGy-cm. mGy. LIMITATIONS: None. FINDINGS: VENTRICLES: Normal size and contour. CEREBRUM: No masses. No hemorrhage. No midline shift. No evidence for acute infarction. Normal gra y/white matter differentiation. No areas of low density in the white matter. CEREBELLUM: No masses. No hemorrhage. No alteration of density. No evidence for acute infarction. EXTRAAXIAL SPACES: No fluid collections. No masses. ORBITS AND GLOBE: No intra- or extraconal masses. Normal contour of globe without masses. CALVARIUM: No fracture. PARANASAL SINUSES: No fluid or mucosal thickening. SOFT TISSUES: No mass or hematoma. OTHER: No other significant finding. IMPRESSION: NORMAL BRAIN CT WITHOUT CONTRAST. EVIDENCE OF ACUTE STROKE: NO. COMMENT: Quality ID # [id number]: Final reports with documentation of one or more dose reduction techniques (e.g., Automated exposure control, adjustment of the mA and/or kV according to patient size, use of iterative reconstruction technique) TECHNICAL DOCUMENTATION: JOB ID: [id number] [employer]- All Rights Reserved Reading location - IP/workstation name: [email or web address]
--- NOTE | 2018-05-31 18:50 | RADIOLOGY REPORT (SQ) ---
EXAM DESCRIPTION: CT CERVICAL SPINE WITHOUT COMPLETED DATE/TIME: 05/31/2018 6:22 pm REASON FOR STUDY: seizure, neck pain COMPARISON: Concurrent head CT and earlier TECHNIQUE: Axial images acquired through the cervical spine without intravenous contrast. Images re viewed with lung, soft tissue and bone windows. Reconstructed coronal and sagittal MPR images review ed. Images stored on PACS. All CT scanners at this facility use dose modulation, iterative reconstruction, and/or weight based d osing when appropriate to reduce radiation dose to as low as reasonably achievable (ALARA). [facility]: Dose Right [facility]: CareDose [facility]: Dose Right [facility]: Teradose 4D [facility]: [employer] RADIATION DOSE: CT Rad equipment meets quality standard of care and radiation dose reduction techniq ues were employed. CTDIvol: 17.4 mGy. DLP: 402 mGy-cm. mGy. LIMITATIONS: None. FINDINGS: ALIGNMENT: Anatomic. MINERALIZATION: Normal. VERTEBRAL BODIES: No fractures or dislocation. DISCS: No significant disc disease. FACETS, LATERAL MASSES, POSTERIOR ELEMENTS: No fractures. No dislocation. No acute findings. HARDWARE: None in the spine. VISUALIZED RIBS: No fractures. LUNG APICES AND SOFT TISSUES: No significant or acute findings. OTHER: No other significant finding. IMPRESSION: NO ACUTE OR SIGNIFICANT FINDINGS IN THE CERVICAL SPINE. TECHNICAL DOCUMENTATION: JOB ID: [id number] Quality ID # [id number]: Final reports with documentation of one or more dose reduction techniques (e.g., Au tomated exposure control, adjustment of the mA and/or kV according to patient size, use of iterative reconstruction technique) 2010 [employer]- All Rights Reserved Reading location - IP/workstation name: [email or web address]
[2018-05-31 20:22] LABS: APPEARANCE,URINE CLOUDY; BILIRUBIN,URINE NEGATIVE (NEGATIVE); COLOR,URINE YELLOW; GLUCOSE, URINE NEGATIVE (NEGATIVE); KETONES,URINE NEGATIVE (NEGATIVE); LEUKOCYTE ESTERASE,URINE NEGATIVE (NEGATIVE); NITRITE,URINE NEGATIVE (NEGATIVE); PROTEIN,URINE NEGATIVE (NEGATIVE); URINE SPECIFIC GRAVITY 1.018; UROBILINOGEN,URINE NEGATIVE mg/dL (<2.0)
[2018-05-31 20:33] LABS: URINE AMPHETAMINES SCREEN NEGATIVE; URINE BARBITURATES SCREEN NEGATIVE; URINE BENZODIAZEPINES SCREEN NEGATIVE; URINE COCAINE SCREEN NEGATIVE; URINE MARIJUANA (THC) SCREEN UNCONFIRMED POSITIVE; URINE METHADONE SCREEN NEGATIVE; URINE PHENCYCLIDINE SCREEN NEGATIVE
[2018-05-31] MEDS ORDERED: METHOCARBAMOL 750 MG TABLET PO ONE (20:44)
[2018-05-31 20:47] VITALS: BP 104/66
== END 2018-05-31 20:59 | disposition home or self-care (01) ==
LOC: ER 17:02
DX: R56.9 Unspecified convulsions (principal); Z90.49 Acquired absence of other specified parts of digestive tract; Z87.442 Personal history of urinary calculi; Z90.710 Acquired absence of both cervix and uterus
CPT/HCPCS: 93005; 99285; 96361; 96374; 96375; 36415; 84703; 85025; 80053; 81001; 84484; 80307; 70450; 72125; 93010; J3490; J1885; J2765; J7030; J1100

== ENCOUNTER 2018-06-26 15:36 | Emergency (ER) | payer SELFPAY ==
[2018-06-26 16:57] LABS: ABSOLUTE BASOPHILS # (AUTO) 0.1 10^3/uL (0.0-0.2); ABSOLUTE EOSINOPHILS # (AUTO) 0.1 10^3/uL (0.0-0.6); ABSOLUTE LYMPHOCYTES (AUTO) 1.7 10^3/uL (0.5-4.7); ABSOLUTE MONOCYTES (AUTO) 0.6 10^3/uL (0.1-1.4); ABSOLUTE NEUT (AUTO) 6.1 10^3/uL (1.7-8.2); BASOPHILS % (AUTO) 0.9 % (0-2); EOSINOPHILS % (AUTO) 1.4 % (0-6); HEMATOCRIT 39.9 % (36.0-47.0); HEMOGLOBIN 13.7 g/dL (12.0-15.5); LYMPHOCYTES % (AUTO) 19.7 % (13-45); MEAN CORPUSCULAR HEMOGLOBIN 31.8 pg (27.0-33.4); MEAN CORPUSCULAR HGB CONC 34.4 g/dL (32.0-36.0); MEAN CORPUSCULAR VOLUME 93 fl (80-97); MONOCYTES % (AUTO) 7.3 % (3-13); PLATELET COUNT 207 10^3/uL (150-450); RED BLOOD COUNT 4.32 10^6/uL (3.72-5.28); RED CELL DISTRIBUTION WIDTH 13.2 % (11.5-14.0); SEGMENTED NEUTROPHILS % (AUTO) 70.7 % (42-78); TOTAL CELLS COUNTED % (AUTO) 100 %; WHITE BLOOD COUNT 8.6 10^3/uL (4.0-10.5)
[2018-06-26 17:06] LABS: ALANINE AMINOTRANSFERASE 17 U/L (9-52); ALBUMIN 3.7 g/dL (3.5-5.0); ALKALINE PHOSPHATASE 58 U/L (38-126); ANION GAP 9 (5-19); ASPARTATE AMINO TRANSFERASE 17 U/L (14-36); BILIRUBIN,DIRECT 0.3 mg/dL (0.0-0.4); BILIRUBIN,TOTAL 0.5 mg/dL (0.2-1.3); BLOOD UREA NITROGEN 22 mg/dL (7-20); CALCIUM 9.3 mg/dL (8.4-10.2); CARBON DIOXIDE 27 mmol/L (22-30); CHLORIDE 106 mmol/L (98-107); GLUCOSE 91 mg/dL (75-110); LIPASE 104.6 U/L (23-300); POTASSIUM 4.5 mmol/L (3.6-5.0); SODIUM 142.4 mmol/L (137-145); TOTAL PROTEIN 6.2 g/dL (6.3-8.2)
[2018-06-26 17:26] LABS: URINE AMPHETAMINES SCREEN NEGATIVE; URINE BARBITURATES SCREEN NEGATIVE; URINE BENZODIAZEPINES SCREEN NEGATIVE; URINE COCAINE SCREEN NEGATIVE; URINE MARIJUANA (THC) SCREEN UNCONFIRMED POSITIVE; URINE METHADONE SCREEN NEGATIVE; URINE PHENCYCLIDINE SCREEN NEGATIVE
--- NOTE | 2018-06-26 19:16 | ER Document Report ---
ED Seizure - General Chief Complaint: Probable Seizure Stated Complaint: POSSIBLE SEIZURE Time Seen by Provider: 06/26/18 15:42 Mode of Arrival: Medic Information source: Patient - HPI Patient complains to provider of: Other - 37-year-old female who presents for evaluation of 2 seizures today which she said she felt some prodrome. She was laying in bed saw some neon lights and thereafter began shaking. She had another episode when she was in the kitchen and then had the same thing happened. She denies recent illnesses fevers chills trauma chest pain shortness of breath diarrhea constipation dysuria or rashes. She denies any medication changes in the past, she is taking currently BuSpar as well as other medications for multiple psychiatric issues as well as her fibromyalgia but is not on any antiepileptics. She notes that twice in the last month she had also had single episode of seizures. She has not seen a neurologist for this since it began. - Related Data Allergies/Adverse Reactions: No Known Allergies Allergy (Verified 01/30/18 13:01) Past Medical History - General Information source: Patient, Relative - Social History Smoking Status: Never Smoker Frequency of alcohol use: Occasional Drug Abuse: Marijuana Family History: None Patient has suicidal ideation: No Patient has homicidal ideation: No - Past Medical History Cardiac Medical History: Denies: Hx Coronary Artery Disease, Hx Heart Attack, Hx Hypertension Pulmonary Medical History: Reports: Hx Pneumonia Denies: Hx Asthma, Hx Bronchitis, Hx COPD Neurological Medical History: Reports: Hx Migraine, Hx Seizures. Denies: Hx Cerebrovascular Accident Renal/ Medical History: Reports: Hx Kidney Stones, Hx Ovarian Cysts. Denies: Hx Peritoneal Dialysis Musculoskeletal Medical History: Reports Hx Arthritis - Rheumatoid arthritis, Reports Hx Fibromyalgia Psychiatric Medical History: Reports: Hx Anxiety, Hx Depression, Hx Personality Disorder Past Surgical History: Reports: Hx Section - x2, Hx Cholecystectomy, Hx Hysterectomy, Hx Kidney (Renal Surgery) - lithotripsy - Immunizations Immunizations up to date: Yes Hx Diphtheria, Pertussis, Tetanus Vaccination: Yes Review of Systems - Review of Systems -: Yes All other systems reviewed and negative Physical Exam - Vital signs Vitals: Resp BP Pulse Ox 24 H 107/70 100 06/26/18 15:42 06/26/18 15:42 06/26/18 15:42 - General General appearance: Appears well In distress: None - HEENT Head: Normocephalic, Atraumatic Eyes: Normal Pupils: PERRL - Respiratory Respiratory status: No respiratory distress Chest status: Nontender Breath sounds: Normal Chest palpation: Normal - Cardiovascular Rhythm: Regular Heart sounds: Normal auscultation Murmur: No - Abdominal Inspection: Normal Distension: No distension Bowel sounds: Normal Tenderness: Nontender Organomegaly: No organomegaly - Back Back: Normal, Nontender - Extremities General upper extremity: Normal inspection, Nontender, Normal color, Normal ROM , Normal temperature General lower extremity: Normal inspection, Nontender, Normal color, Normal ROM , Normal temperature, Normal weight bearing. No: Summer's sign - Neurological Neuro grossly intact: Yes Cognition: Normal Orientation: AAOx4 [place] Coma Scale Eye Opening: Spontaneous [place] Coma Scale Verbal: Oriented Demarco Coma Scale Motor: Obeys Commands [place] Coma Scale Total: 15 Speech: Normal Motor strength normal: LUE, RUE, LLE, RLE Sensory: Normal - Psychological Associated symptoms: Normal affect, Normal mood Course - Re-evaluation Re-evalutation: 06/26/18 23:25 37-year-old the presents for evaluation of seizures. She is neurologically intact at this time, has no neurologic deficits, had no obvious precipitant for her seizures. She had had 2 seizures in the past. We will plan to load with Keppra in the emergency department. We will obtain labs. We will defer imaging of the head as she has had a CT scan of the head recently which did not show any obvious abnormality. Spoke to on-call neurologist for [facility] Dr. Andrea who notes that it is reasonable to initiate an antiepileptic for this patient such as Keppra 750 twice daily. I spoke to the patient about seizure prophylaxis. We will plan for her to undergo discharge with return precautions and follow-up with her primary neurologist. Was given instructions on follow-up with [facility]. - Vital Signs Vital signs: Temp Pulse Resp BP Pulse Ox 98.5 F 56 L 16 108/73 98 06/26/18 15:46 06/26/18 15:46 06/26/18 20:01 06/26/18 20:01 06/26/18 20:01 - Laboratory Result Diagrams: 06/26/18 16:40 06/26/18 16:40 Laboratory results interpreted by me: 06/26/18 16:40 BUN 22 H Total Protein 6.2 L Discharge - Discharge Clinical Impression: Seizure Condition: Good Disposition: HOME, SELF-CARE Instructions: New Seizure ([facility]) Additional Instructions: You were seen today in the emergency department for your seizure. You had an evaluation including a physical exam as well as blood test. Previously he had had 2 seizures. You have been started on a medication to help with seizure prevention. Take the medication as directed 2 times a day. Call for an appointment with a neurologist in the coming week, I spoke to a neurologist related to your care from [facility], Dr. Andrea. Return in case of worsening seizures, if you have pain or injury elsewhere. If you begin to have other symptoms. Use the information provided to you to contact a neurologist. [facility] outpatient neurology Address: [address] [place] [id number] Hours: 8AM5PM Saturday 8AM5PM Saturday Closed Saturday Closed Saturday 8AM5PM Saturday 8AM5PM Saturday 8AM5PM Prescriptions: Levetiracetam [Keppra] 750 mg PO BID #60 tablet
[2018-06-26] MEDS ORDERED: LEVETIRACETAM 1500 MG/NACL-ISO 1,500 MG/100 ML RTUPB IV ONE (19:17)
[2018-06-26 20:30] VITALS: BP 108/73
--- NOTE | 2018-06-26 22:36 | EKG REPORT ---
SEVERITY:- NORMAL ECG - SINUS RHYTHM : Confirmed by: Varun Mcmahan 26-Jun-2018 22:36:06
== END 2018-06-26 20:48 | disposition home or self-care (01) ==
LOC: ER 15:36
DX: R56.9 Unspecified convulsions (principal)
CPT/HCPCS: 93005; 99284; 96365; 36415; 83690; 85025; 81025; 80053; 80307; 93010; J1953

== ENCOUNTER 2018-07-01 05:58 | Emergency (ER) | payer SELFPAY ==
[2018-07-01] MEDS ORDERED: KETOROLAC TROMETHAMINE INJ/PF 30 MG/1 ML SDV IV ONE (07:12)
[2018-07-01] MEDS ORDERED: FENTANYL CITRATE INJ/PF 100 MCG/2 ML AMPUL IV ONE (07:12)
[2018-07-01] MEDS ORDERED: NORMAL SALINE 1000 ML 1,000 ML IV ONE (07:12)
[2018-07-01] MEDS ORDERED: ONDANSETRON HCL INJ/PF 4 MG/2 ML SDV IV ONE (07:12)
[2018-07-01 07:24] LABS: ABSOLUTE EOSINOPHILS # (AUTO) 0.1 10^3/uL (0.0-0.6); ABSOLUTE LYMPHOCYTES (AUTO) 1.3 10^3/uL (0.5-4.7); ABSOLUTE MONOCYTES (AUTO) 0.4 10^3/uL (0.1-1.4); ABSOLUTE NEUT (AUTO) 4.6 10^3/uL (1.7-8.2); BASOPHILS % (AUTO) 0.7 % (0-2); EOSINOPHILS % (AUTO) 0.8 % (0-6); HEMATOCRIT 42.4 % (36.0-47.0); HEMOGLOBIN 14.5 g/dL (12.0-15.5); LYMPHOCYTES % (AUTO) 20.4 % (13-45); MEAN CORPUSCULAR HEMOGLOBIN 31.4 pg (27.0-33.4); MEAN CORPUSCULAR HGB CONC 34.2 g/dL (32.0-36.0); MEAN CORPUSCULAR VOLUME 92 fl (80-97); MONOCYTES % (AUTO) 5.8 % (3-13); PLATELET COUNT 210 10^3/uL (150-450); RED BLOOD COUNT 4.62 10^6/uL (3.72-5.28); RED CELL DISTRIBUTION WIDTH 13.2 % (11.5-14.0); SEGMENTED NEUTROPHILS % (AUTO) 72.3 % (42-78); TOTAL CELLS COUNTED % (AUTO) 100 %; WHITE BLOOD COUNT 6.4 10^3/uL (4.0-10.5)
[2018-07-01 07:47] LABS: ANION GAP 13 (5-19); BLOOD UREA NITROGEN 16 mg/dL (7-20); CALCIUM 9.8 mg/dL (8.4-10.2); CARBON DIOXIDE 22 mmol/L (22-30); CHLORIDE 107 mmol/L (98-107); GLUCOSE 99 mg/dL (75-110); LIPASE 77.3 U/L (23-300); POTASSIUM 3.7 mmol/L (3.6-5.0); SODIUM 141.9 mmol/L (137-145)
[2018-07-01 08:05] LABS: APPEARANCE,URINE SLIGHTLY-CLOUDY; BILIRUBIN,URINE NEGATIVE (NEGATIVE); COLOR,URINE YELLOW; GLUCOSE, URINE NEGATIVE (NEGATIVE); KETONES,URINE 20 mg/dL (NEGATIVE); LEUKOCYTE ESTERASE,URINE NEGATIVE (NEGATIVE); NITRITE,URINE NEGATIVE (NEGATIVE); PROTEIN,URINE NEGATIVE (NEGATIVE); URINE SPECIFIC GRAVITY 1.017
[2018-07-01] MEDS ORDERED: BUSPIRONE HCL 10 MG TABLET PO ONE (09:08)
[2018-07-01] MEDS ORDERED: LIDOCAINE 5% (700 MG) TRANSDERMAL ADH..PATCH TP ONE (09:08)
[2018-07-01] MEDS ORDERED: ACETAMINOPHEN 325 MG TABLET PO ONE (09:08)
[2018-07-01] MEDS ORDERED: HYDROXYZINE HCL INJ 50 MG/1 ML VIAL IM ONE (09:10)
--- NOTE | 2018-07-01 09:12 | ER Document Report ---
ED General - General Chief Complaint: Possible Kidney Stone Stated Complaint: FLANK PAIN Time Seen by Provider: 07/01/18 06:46 Mode of Arrival: Ambulatory Information source: Patient, Relative TRAVEL OUTSIDE OF THE [place] IN LAST 30 DAYS: No - HPI Patient complains to provider of: Back pain Onset: Other - 37-year-old female with a past medical history significant for PTSD, anxiety, depression, fibromyalgia as well as seizures that presents for evaluation of back pain which began yesterday and is made it on able for her to tolerate anymore feels like "her kidneys are aching" she also endorses urinary urgency. Denies any fevers or chills, does endorse some chest discomfort which she says is intermittent and comes in waves ever since her initial seizure while over a month prior. She is never had anything like this before, nothing makes it better or worse. - Related Data Allergies/Adverse Reactions: No Known Allergies Allergy (Verified 01/30/18 13:01) Past Medical History - General Information source: Patient, Relative - Social History Smoking Status: Never Smoker Chew tobacco use (# tins/day): No Frequency of alcohol use: None Drug Abuse: None Family History: None Patient has suicidal ideation: No Patient has homicidal ideation: No - Past Medical History Cardiac Medical History: Denies: Hx Coronary Artery Disease, Hx Heart Attack, Hx Hypertension Pulmonary Medical History: Reports: Hx Pneumonia Denies: Hx Asthma, Hx Bronchitis, Hx COPD Neurological Medical History: Reports: Hx Migraine, Hx Seizures. Denies: Hx Cerebrovascular Accident Renal/ Medical History: Reports: Hx Kidney Stones, Hx Ovarian Cysts. Denies: Hx Peritoneal Dialysis Musculoskeletal Medical History: Reports Hx Arthritis - Rheumatoid arthritis, Reports Hx Fibromyalgia Psychiatric Medical History: Reports: Hx Anxiety, Hx Depression, Hx Personality Disorder Past Surgical History: Reports: Hx Section - x2, Hx Cholecystectomy, Hx Hysterectomy, Hx Kidney (Renal Surgery) - lithotripsy - Immunizations Immunizations up to date: Yes Hx Diphtheria, Pertussis, Tetanus Vaccination: Yes Review of Systems - Review of Systems -: Yes All other systems reviewed and negative Physical Exam - Vital signs Vitals: Temp Pulse Resp BP Pulse Ox 97.7 F 75 17 101/66 100 07/01/18 06:02 07/01/18 06:02 07/01/18 06:02 07/01/18 06:02 07/01/18 06:02 - General General appearance: Alert, Anxious In distress: Moderate - HEENT Head: Normocephalic, Atraumatic Eyes: Normal Pupils: PERRL - Respiratory Respiratory status: No respiratory distress Chest status: Nontender Breath sounds: Normal Chest palpation: Normal - Cardiovascular Rhythm: Regular Heart sounds: Normal auscultation Murmur: No - Abdominal Inspection: Normal Distension: No distension Tenderness: Tender - Tender in the right lower quadrant Organomegaly: No organomegaly - Back Back: CVA tenderness - Extremities General upper extremity: Normal inspection, Nontender, Normal color, Normal ROM , Normal temperature General lower extremity: Normal inspection, Nontender, Normal color, Normal ROM , Normal temperature, Normal weight bearing. No: Summer's sign - Neurological Neuro grossly intact: Yes Cognition: Normal Orientation: AAOx4 [place] Coma Scale Eye Opening: Spontaneous Demarco Coma Scale Verbal: Oriented [place] Coma Scale Motor: Obeys Commands [place] Coma Scale Total: 15 Speech: Normal Motor strength normal: LUE, RUE, LLE, RLE Sensory: Normal - Psychological Associated symptoms: Anxious, Tearful Course - Re-evaluation Re-evalutation: 07/01/18 10:57 37-year-old david presents for flank pain similar to previous episodes of nephrolithiases in the past. On initial examination she is in some distress very tearful and hyperventilating. We will obtain urinalysis as well as a chemistry and reassess if she has had kidney stones in the past and does state that this feels like that. Urinalysis does not demonstrate any hematuria, or her kidney function is normal and her CBC is normal. I am uncertain what is underlying this patient's back pain at this time, she is continuing hyperventilate, noting that she feels exceptionally anxious and that this is a panic attack. She is received fentanyl as well as Toradol for pain control, will administer hydroxyzine IM. We will administer her home medications which she missed this morning. CT imaging demonstrates this patient does have a small nephrolithiasis in the inferior aspect of her right ureter. This is likely this patient's underlying cause of pain and anxiety at this time. Because of the concern for her anxiety she said that the Vistaril did help exceptionally to try and manage that. Her pain is now well controlled, she is been able to go to the bathroom. Does not have an obvious urinary tract infection, does not have any fevers. I believe she is likely a candidate for outpatient management of her nephrolithiasis. We will give her a brief prescription for narcotic analgesia, will give her Flomax, will give her instructions to follow-up. Because she did have a positive response to the hydroxyzine and is relatively safe for her anxiety we will give her a prescription for this as well. She is scheduled to see her primary physician tomorrow, she will continue her normal medications until then. She was given strict return precautions related to fever and worsening pain. - Vital Signs Vital signs: Temp Pulse Resp BP Pulse Ox 97.9 F 71 18 120/78 100 07/01/18 10:00 07/01/18 10:00 07/01/18 10:00 07/01/18 10:00 07/01/18 10:00 - Laboratory Result Diagrams: 07/01/18 06:23 07/01/18 06:23 Laboratory results interpreted by me: 07/01/18 07:30 Urine Ketones 20 H Urine Urobilinogen 4.0 H Discharge - Discharge Clinical Impression: Kidney stone, Anxiety, Hyperventilating Back pain Qualifiers: Back pain location: low back pain Chronicity: unspecified Back pain laterality : unspecified Sciatica presence: unspecified whether sciatica present Qualified Code(s): M54.5 - Low back pain Condition: Good Disposition: HOME, SELF-CARE Instructions: Kidney Stone ([facility]), Anxiety ([facility]) Additional Instructions: Your seen today in the emergency department for your abdominal pain and flank pain. He had an evaluation including a physical exam as well as a scan of your abdomen and pelvis which showed a small kidney stone. You have been given a medication to use as needed for pain. You have been given a medication to use for anxiety, use it only as needed. Continue to use Aleve for your pain. If you have consistent pain over the next 2 days you should start the Flomax. You should call your urologist for a follow-up visit today. Continue to take your other medications as directed. Keep your follow-up visit tomorrow with your primary care physician to discuss your buspirone dosing. Prescriptions: Hydroxyzine HCl [Atarax 25 mg Tablet] 1 - 2 tab PO QID #25 tablet Oxycodone HCl 5 mg PO TID PRN #16 capsule PRN Reason: For Pain Scale 3-5 Tamsulosin HCl [Flomax 0.4 mg Cap.sr] 0.4 mg PO DAILY #7 cap.sr.24h Referrals: ERIKA ANGEL PA-C [Primary Care Provider] - Follow up as needed
--- NOTE | 2018-07-01 09:27 | RADIOLOGY REPORT (SQ) ---
EXAM DESCRIPTION: CT ABD/PELVIS NO ORAL OR IV COMPLETED DATE/TIME: 07/01/2018 8:41 am REASON FOR STUDY: concern for obstructing stone COMPARISON: 01/29/2014 TECHNIQUE: CT scan of the abdomen and pelvis performed without intravenous or oral contrast. Images reviewed with lung, soft tissue, and bone windows. Reconstructed coronal and sagittal MPR images revi ewed. All images stored on PACS. All CT scanners at this facility use dose modulation, iterative reconstruction, and/or weight based d osing when appropriate to reduce radiation dose to as low as reasonably achievable (ALARA). [facility]: Dose Right [facility]: CareDose [facility]: Dose Right [facility]: Teradose 4D [facility]: Smart Med-[employer]ek RADIATION DOSE: CT Rad equipment meets quality standard of care and radiation dose reduction techniq ues were employed. CTDIvol: 10.3 mGy. DLP: 614 mGy-cm.mGy. LIMITATIONS: None. FINDINGS: LOWER CHEST: No significant interval changes. NON-CONTRASTED LIVER, SPLEEN, ADRENALS: The previously identified slightly irregular area of hypoatt enuation in the right hepatic lobe is not well visualized on this noncontrast study. Evaluation limit ed by lack of IV contrast. PANCREAS: No masses. No peripancreatic inflammatory changes. GALLBLADDER: Prior cholecystectomy. RIGHT KIDNEY AND URETER: A 3-4 mm calculus in the distal left ureter, no evidence for significant di latation of the ureter. Nonobstructing right renal calculi. One of the largest is identified in the midpole which measures 8 mm. LEFT KIDNEY AND URETER: Nonobstructing left renal calculi. One of the largest measures 6 mm. AORTA AND RETROPERITONEUM: No aneurysm. No retroperitoneal masses or adenopathy. BOWEL AND PERITONEAL CAVITY: No obvious masses or inflammatory changes. No free fluid. APPENDIX: Normal. PELVIS, BLADDER, AND ABDOMINAL WALL: Prior hysterectomy. Small fat containing umbilical hernia. Sm all phleboliths in the pelvic region. No free fluid. Bladder normal. BONES: Dextroconvex scoliosis of the lumbar spine. OTHER: Status post gastric bypass surgery, new finding since the prior study. Small hiatal hernia. IMPRESSION: 1. A small 3-4 mm distal left ureteral calculus, approximately 2-2.5 cm proximal to the left ureterovesical junction. No evidence for significant dilatation of the ureter. 2. Bilateral nonobstructing nephrolithiasis. 3. Additional findings as above. COMMENT: Quality ID # [id number]: Final reports with documentation of one or more dose reduction techniques (e.g., Automated exposure control, adjustment of the mA and/or kV according to patient size, use of iterative reconstruction technique) TECHNICAL DOCUMENTATION: JOB ID: [id number] [employer]- All Rights Reserved Reading location - IP/workstation name: [email or web address]
[2018-07-01 10:56] VITALS: BP 107/76
--- NOTE | 2018-07-01 13:06 | EKG REPORT ---
SEVERITY:- NORMAL ECG - SINUS RHYTHM WITH SINUS ARRHYTHMIA : Confirmed by: Angela Patel MD 01-Jul-2018 13:06:04
== END 2018-07-01 10:55 | disposition home or self-care (01) ==
LOC: ER 05:58
DX: N20.2 Calculus of kidney with calculus of ureter (principal); F41.9 Anxiety disorder, unspecified; M54.5 Low back pain; R06.4 Hyperventilation; R39.15 Urgency of urination
CPT/HCPCS: 93005; 99284; 96372; 96361; 96374; 96375; 36415; 87086; 83690; 85025; 81025; 80048; 81001; 84484; 74176; 93010; J3010; J3490; J1885; J2405; J7030

== ENCOUNTER 2018-07-03 10:06 | Emergency (ER) | payer SELFPAY ==
[2018-07-03 10:14] VITALS: BP 117/72
[2018-07-03] MEDS ORDERED: KETOROLAC TROMETHAMINE INJ/PF 30 MG/1 ML SDV IV ONE (10:44)
[2018-07-03] MEDS ORDERED: FENTANYL CITRATE INJ/PF 100 MCG/2 ML AMPUL IV ONE (10:44)
[2018-07-03] MEDS ORDERED: ONDANSETRON HCL INJ/PF 4 MG/2 ML SDV IV ONE (10:44)
[2018-07-03] MEDS ORDERED: NORMAL SALINE 1000 ML 1,000 ML IV ONE (10:44)
--- NOTE | 2018-07-03 12:18 | RADIOLOGY REPORT (SQ) ---
EXAM DESCRIPTION: U/S RETROPERITON (RENAL/AORTA) COMPLETED DATE/TIME: 07/03/2018 11:56 am REASON FOR STUDY: Bilateral kidney stones COMPARISON: Abdominal CT scan dated 07/01/2018 TECHNIQUE: Dynamic and static grayscale images acquired of the kidneys and bladder and recorded on P ACS. Additional selected color Doppler and spectral images recorded. LIMITATIONS: None. FINDINGS: RIGHT KIDNEY: 10.1 cm in length Normal echogenicity. No solid or suspicious masses. No hydronephrosis. The renal calculus identified on the recent CT scan is not definitely identifie d on the ultrasound examination. LEFT KIDNEY: 10.4 cm in length. Normal echogenicity. No solid or suspicious masses. No hydrone phrosis. Echogenic foci are identified consistent with renal calculi. BLADDER: No masses. OTHER FINDINGS: No other significant finding. IMPRESSION: The right renal calculus identified on the recent CT scan is not definitely identified o n the ultrasound examination. Echogenic foci are identified in the left kidney consistent with renal calculi. Other findings as noted above TECHNICAL DOCUMENTATION: JOB ID: [id number] [employer]- All Rights Reserved Reading location - IP/workstation name: [email or web address]
--- NOTE | 2018-07-04 18:09 | ER Document Report ---
ED GI/ - General Chief Complaint: Possible Kidney Stone Stated Complaint: FLANK PAIN Time Seen by Provider: 07/03/18 10:40 Mode of Arrival: Ambulatory Information source: Patient Notes: History of Present Illness Time: [ ] Chief Complaint: [flank pain] [ ] History obtained from [patient] 37 years old female with a history of kidney stones multiple of them presents today with right flank pain for the last few days. Associated with dysuria as well as nausea and vomiting. No fever chills or other constitutional symptoms Symptoms began: [today] Onset: [gradual] Timing: [intermittent] Quality: [``pain] Intensity: [severe] Location: [flank] Migration: [none] Radiation: [none] Mechanism: [none] Aggravating factors: [none] Relieving factors: [none] Denies significant traumatic injury Denies weakness, numbness, incontinence Denies IV drug use Denies trouble with urination Review of Systems All other systems negative as reviewed. CONSTITUTIONAL No fever. EYES No eye pain. ENT No URI symptoms, No sore throat, No ear pain. CARDIOVASCULAR No chest pain, No palpitations, No edema. RESPIRATORY No Cough, No SOB, No wheezing. GASTROINTESTINAL No abdominal pain, No diarrhea, No vomiting, No constipation, No melena, No rectal bleeding. GENITOURINARY No UTI symptoms, No bleeding. MUSCULOSKELETAL + flank pain. SKIN No Rash. NEUROLOGIC No Headache, No recent seizures, No paralysis, No parathesias. Physical Exam CONSTITUTIONAL Vital signs reviewed, comfortable, Alert and oriented X 3. HEAD Atraumatic, Normal cephalic. EYES No discharge from eyes, Sclera are not injected, Extraocular muscles intact, Conjunctiva are normal. ENT Ears normal to inspection, Nose examination normal, Oropharynx normal, Mucous membranes pink, moist, normal in color. NECK Normal ROM, No jugular venous distention, No meningeal signs, No carotid bruit. RESPIRATORY/CHEST Chest is non-tender, Breath sounds normal, No respiratory distress. CARDIOVASCULAR RRR, Heart sounds normal. ABDOMEN Abdomen is non-tender, No masses, Bowel sounds normal, No distension, No peritoneal signs. BACK Normal inspection. no focal bony tenderness, no CVA tenderness, no soft tissue tenderness, negative straight leg test bilaterally, bilateral 2+ knee deep tendon reflexes. UPPER EXTREMITY Inspection normal, No cyanosis/clubbing/edema, 2+ radial pulses. LOWER EXTREMITY Inspection normal, No cyanosis/clubbing/edema, 2+ femoral pulses. NEURO Motor exam normal, Sensory exam normal. SKIN Skin is warm and dry, No rash. PSYCHIATRIC Normal affect. TRAVEL OUTSIDE OF THE [place] IN LAST 30 DAYS: No - HPI Notes: 07/04/18 18:08 Dictated - Related Data Allergies/Adverse Reactions: No Known Allergies Allergy (Verified 01/30/18 13:01) Past Medical History - Social History Smoking Status: Never Smoker Frequency of alcohol use: Rare Drug Abuse: None Family History: None, Reviewed & Not Pertinent Patient has suicidal ideation: No Patient has homicidal ideation: No - Past Medical History Cardiac Medical History: Denies: Hx Coronary Artery Disease, Hx Heart Attack, Hx Hypertension Pulmonary Medical History: Reports: Hx Pneumonia Denies: Hx Asthma, Hx Bronchitis, Hx COPD Neurological Medical History: Reports: Hx Migraine, Hx Seizures. Denies: Hx Cerebrovascular Accident Renal/ Medical History: Reports: Hx Kidney Stones, Hx Ovarian Cysts. Denies: Hx Peritoneal Dialysis Musculoskeletal Medical History: Reports Hx Arthritis - Rheumatoid arthritis, Reports Hx Fibromyalgia Psychiatric Medical History: Reports: Hx Anxiety, Hx Depression, Hx Personality Disorder Past Surgical History: Reports: Hx Section - x2, Hx Cholecystectomy, Hx Hysterectomy, Hx Kidney (Renal Surgery) - lithotripsy - Immunizations Immunizations up to date: Yes Hx Diphtheria, Pertussis, Tetanus Vaccination: Yes Review of Systems - Review of Systems Notes: Dictated Physical Exam - Vital signs Vitals: Temp Pulse Resp BP Pulse Ox 98.2 F 82 18 117/72 98 07/03/18 10:10 07/03/18 10:10 07/03/18 10:10 07/03/18 10:10 07/03/18 10:10 - Notes Notes: Dictated Course - Vital Signs Vital signs: Temp Pulse Resp BP Pulse Ox 98.2 F 82 16 117/72 98 07/03/18 10:10 07/03/18 10:10 07/03/18 10:35 07/03/18 10:10 07/03/18 10:10 Discharge - Discharge Clinical Impression: Renal calculi Disposition: ELOPED Referrals: ERIKA NAGEL PA-C [Primary Care Provider] - Follow up as needed
== END 2018-07-03 12:45 | disposition left against medical advice (07) ==
LOC: ER 10:06
DX: N20.0 Calculus of kidney (principal); R10.9 Unspecified abdominal pain; R30.0 Dysuria; R11.2 Nausea with vomiting, unspecified; Z90.49 Acquired absence of other specified parts of digestive tract; Z90.710 Acquired absence of both cervix and uterus
CPT/HCPCS: 76770

== ENCOUNTER 2018-07-10 11:47 | Emergency (ER) | payer SELFPAY ==
[2018-07-10] MEDS ORDERED: LEVETIRACETAM 500 MG/NACL-ISO 500 MG/100 ML RTUPB IV ONE ×2 (12:02→15:14)
[2018-07-10] MEDS ORDERED: NORMAL SALINE 1000 ML 1,000 ML IV ONE (12:02)
--- NOTE | 2018-07-10 12:20 | ER Document Report ---
Addendum entered and electronically signed by JESU TENA PA-C 07/10/18 16:04: Discharge - Discharge Clinical Impression: Seizure Condition: Stable Disposition: HOME, SELF-CARE Instructions: Family Physicians / Practices, Seizure, Known Epileptic ([facility]) Additional Instructions: Maintain adequate fluid and food intake Take home medications as directed Healthy diet Monitor symptoms for any acute changes Recheck with your PCM in 3-5 days Schedule a follow-up with neurology for next week. Return to the ED with any worsening symptoms and/or development of fever, headache, changes in behavior/mentation/vision/speech, chest pain, palpitations, syncope, shortness of breath, trouble breathing, abdominal pain, n/v/d, blood in stool/urine, loss of control of bowel/bladder, urinary retention, muscle we akness/paralysis, saddle anesthesia, numbness/tingling, or other worsening symptoms that are concerning to you. Prescriptions: Levetiracetam [Keppra] 750 mg PO BID #60 tablet Forms: Elevated Blood Pressure Referrals: ERIKA ANGEL PA-C [Primary Care Provider] - Follow up as needed ILYA LUDWIG MD [NO LOCAL MD] - Follow up as needed BHAVIK ROBERTS MD [NO LOCAL MD] - Follow up as needed Original Note: ED General - General Stated Complaint: POSSIBLE SEIZURE Time Seen by Provider: 07/10/18 11:57 TRAVEL OUTSIDE OF THE [place] IN LAST 30 DAYS: No - HPI Notes: Patient is a 37-year-old female with a history of Fibromyalgia, rheumatoid arthritis, depression, anxiety, seizure disorder who presents to the ED complaining of having a seizure that lasted a little less than 2 minutes prior to arrival. Patient states that she was standing up from her couch when she started noticing her prodromal symptoms of neon colored circles. Patient states that the seizure was witnessed by her son and her movements were very typical of that in the past where she was hitting herself in the face and shaking. Patient states that she did bite her tongue as well on the right side. She is otherwise been able to eat and drink without any difficulties. She is urinating normally and having normal bowel movements. Patient states that aside from feeling "groggy" she feels back to normal. Denies any drug allergies. No other concerns or complaints at this time. Patient is not on any antiepileptic medications as Sola made her angry and she stopped taking them 4 days after starting. Denies any headache, fever, head injury, neck pain, changes in vision/speech/mentation/hearing, URI, sore throat, chest pain, palpitations, syncope, cough, shortness of breath, wheeze, dyspnea, abdominal pain, nausea/vomiting/diarrhea, urinary retention, dysuria, hematuria, loss of control of bowel or bladder, numbness/tingling, saddle anesthesia, muscle para lysis/weakness, or rash. - Related Data Allergies/Adverse Reactions: No Known Allergies Allergy (Verified 01/30/18 13:01) Past Medical History - Social History Smoking Status: Unknown if Ever Smoked Family History: None, Reviewed & Not Pertinent - Past Medical History Cardiac Medical History: Denies: Hx Coronary Artery Disease, Hx Heart Attack, Hx Hypertension Pulmonary Medical History: Reports: Hx Pneumonia Denies: Hx Asthma, Hx Bronchitis, Hx COPD Neurological Medical History: Reports: Hx Migraine, Hx Seizures. Denies: Hx Cerebrovascular Accident Renal/ Medical History: Reports: Hx Kidney Stones, Hx Ovarian Cysts. Denies: Hx Peritoneal Dialysis Musculoskeletal Medical History: Reports Hx Arthritis - Rheumatoid arthritis, Reports Hx Fibromyalgia Psychiatric Medical History: Reports: Hx Anxiety, Hx Depression, Hx Personality Disorder Past Surgical History: Reports: Hx Section - x2, Hx Cholecystectomy, Hx Hysterectomy, Hx Kidney (Renal Surgery) - lithotripsy - Immunizations Immunizations up to date: Yes Hx Diphtheria, Pertussis, Tetanus Vaccination: Yes Review of Systems - Review of Systems -: Yes All other systems reviewed and negative Physical Exam - Notes Notes: PHYSICAL EXAMINATION: GENERAL: Well-appearing, well-nourished and in no acute distress. A&Ox4. Answers questions appropriately. HEAD: Atraumatic, normocephalic. Non-tender. EYES: Pupils equal round and reactive to light, extraocular movements intact, sclera anicteric, conjunctiva are normal. No nystagmus. vis ramirez intact. ENT: EAC clear b/l. TM's intact b/l without erythema, fluid, or perforation. Nares patent and without discharge. oropharynx clear without exudates. No tonsilar hypertrophy or erythema. Moist mucous membranes. No sinus tenderness. NECK: Normal range of motion, supple without lymphadenopathy. No rigidity/meningismus. No midline tenderness. LUNGS: Breath sounds clear to auscultation bilaterally and equal. No wheezes rales or rhonchi. HEART: Regular rate and rhythm without murmurs, rubs, gallops. ABDOMEN: Soft, nontender, nondistended abdomen. No guarding, no rebound. Normal bowel sounds present. No CVA tenderness bilaterally. Musculoskeletal: Ext's b/l: FROM to passive/active. Strength 5+/5. No deficits noted. No bony tenderness of extremities. Extremities: No cyanosis, clubbing, or edema b/l. Peripheral pulses 2+. Capillary refill less than 2 seconds. NEUROLOGICAL: NIH 0. GCS 15. Cranial nerves grossly intact. Normal speech, normal gait. Normal sensory, motor exams. Reflexes 2+ b/l. MARK's negative. Pronator drift negative. Heel/caba, finger/nose wnl. PSYCH: Normal mood, normal affect. SKIN: Warm, Dry, normal turgor, no rashes or lesions noted. Course - Re-evaluation Re-evalutation: 07/10/18 12:[address] Wilson who is in agreement with current plan. We will monitor for an hour, give fluids, and consult with Neuro. Pt is at baseline w/o any focal neurological deficits present. Call placed to [facility] for consult. 07/10/18 12:[address] Roberts, Neuro, and he recommends dilantin 300mg at bedtime or 100mg TID. She does need a f/u with Neuro either with them or local here. 07/10/18 15:10 Patient is an afebrile, well-hydrated, 37-year-old female who presents to the ED with seizure. Vitals are acceptable without significant tachycardia, tachypnea, or hypoxia. PE is otherwise unremarkable for any focal neurological deficits. Patient is nontoxic-appearing and is tolerating p.o. without difficulty. Patient presented with seizure with known seizure disorder. No labs or imaging warranted at this time based on H&P. I spent 35 minutes in length reviewing seizures, possible treatments, and further evaluation by a neurologist. Answered all questions to the best my ability to the patient and her mother. Patient is obtaining health insurance starting July 22, but has not scheduled appointment with a neurologist. Reviewed with patient that she does not need a formal referral if she pays upfront for without insurance. Pt is also going to be establishing with a PCM. Patient would like to just restart her Keppra and believes that she can handle the irritability that she felt on the medicine rather than trying the Dilantin. Keppra 500mg given IV. Reviewed that patient will need strict follow-up and routine blood monitoring. Low suspicion for any acute glaucoma, temporal arteritis, meningitis, intracranial hemorrhage, ischemic stroke, or fracture at this time. Patient is aware that this condition can change from initial presentation and that she needs to monitor symptoms closely for any acute changes. Conservative measures otherwise for symptoms. Recheck/establish with PCM in 3-5 days. Schedule appointment with a neurologist. Return to the ED with any worsening/concerning symptoms otherwise as reviewed. Patient and mother are in agreement. Discharge - Discharge Clinical Impression: Seizure Condition: Stable Disposition: HOME, SELF-CARE Instructions: Seizure, Known Epileptic ([facility]), Family Physicians / Practices Additional Instructions: Maintain adequate fluid and food intake Take home medications as directed Healthy diet Monitor symptoms for any acute changes Recheck with your PCM in 3-5 days Schedule a follow-up with neurology for next week. Return to the ED with any worsening symptoms and/or development of fever, headache, changes in behavior/mentation/vision/speech, chest pain, palpitations, syncope, shortness of breath, trouble breathing, abdominal pain, n/v/d, blood in stool/urine, loss of control of bowel/bladder, urinary retention, muscle weakness/paralysis, saddle anesthesia, numbness/tingling, or other worsening symptoms that are concerning to you. Forms: Elevated Blood Pressure Referrals: ERIKA ANGEL PA-C [Primary Care Provider] - Follow up as needed ILYA LUWDIG MD [NO LOCAL MD] - Follow up as needed BHAVIK ROBERTS MD [NO LOCAL MD] - Follow up as needed
[2018-07-10] MEDS ORDERED: ONDANSETRON ODT 4 MG TAB (6 TAB/ER DISP) PO PRN (15:17)
[2018-07-10] MEDS ORDERED: ONDANSETRON HCL INJ/PF 4 MG/2 ML SDV IV ONE (15:17)
[2018-07-10] MEDS ORDERED: MORPHINE SULFATE 10 MG/ML INJ IV ONE (15:17)
[2018-07-10 16:21] VITALS: BP 129/87
== END 2018-07-10 16:19 | disposition home or self-care (01) ==
LOC: ER 11:47
DX: G40.909 Epilepsy, unspecified, not intractable, without status epilepticus (principal)
CPT/HCPCS: 99284; 96361; 96375; 96365; J2270; J2405; J7030; J1953

== ENCOUNTER 2018-08-04 11:41 | Emergency (ER) | payer OTHER ==
--- NOTE | 2018-08-04 12:35 | ER Document Report ---
HPI - HPI Time Seen by Provider: 08/04/18 12:06 Pain Level: 3 Notes: Patient is a 37-year-old female who presents to the ED complaining of nasal congestion/discharge, dry nonproductive cough, fever, body ache 4 days. Patient states that she is still eating and drinking without difficulties, but does have a decreased p.o. intake. She is still urinating normally having normal bowel movements. Patient has been using some [id number] meds for symptoms. She denies any significant past medical history including cardiopulmonary history and immunocompromised conditions. Patient denies any smoking or IV drug use. Denies any current headache, neck pain, sore throat, chest pain, palpitations, syncope, shortness of breath, wheeze, dyspnea, abdominal pain, nausea/vomiting/diarrhea, urinary retention, dysuria, hematuria, or rash. - ROS Systems Reviewed and Negative: Yes All other systems reviewed and negative - CONSTITUTIONAL Constitutional: REPORTS: Fever, Chills - RESPIRATORY Respiratory: REPORTS: Coughing - REPRODUCTIVE Reproductive: DENIES: : Past Medical History - Social History Smoking Status: Never Smoker Frequency of alcohol use: None Drug Abuse: Marijuana Family History: None, Reviewed & Not Pertinent Patient has suicidal ideation: No Patient has homicidal ideation: No - Past Medical History Cardiac Medical History: Denies: Hx Coronary Artery Disease, Hx Heart Attack, Hx Hypertension Pulmonary Medical History: Reports: Hx Pneumonia Denies: Hx Asthma, Hx Bronchitis, Hx COPD Neurological Medical History: Reports: Hx Migraine, Hx Seizures. Denies: Hx Cerebrovascular Accident Renal/ Medical History: Reports: Hx Kidney Stones, Hx Ovarian Cysts. Denies: Hx Peritoneal Dialysis Musculoskeletal Medical History: Reports Hx Arthritis - Rheumatoid arthritis, Reports Hx Fibromyalgia Psychiatric Medical History: Reports: Hx Anxiety, Hx Depression - anxiety and depression, Hx Personality Disorder Past Surgical History: Reports: Hx Section - x2, Hx Cholecystectomy, Hx Hysterectomy, Hx Kidney (Renal Surgery) - lithotripsy - Immunizations Immunizations up to date: Yes Hx Diphtheria, Pertussis, Tetanus Vaccination: Yes Vertical Provider Document - CONSTITUTIONAL Agree With Documented VS: Yes Notes: PHYSICAL EXAMINATION: GENERAL: Well-appearing, well-nourished and in no acute distress. A&Ox4. Answers questions appropriately. Moves comfortably w/o notable distress HEAD: Atraumatic, normocephalic. EYES: Pupils equal round and reactive to light, extraocular movements intact, sclera anicteric, conjunctiva are normal. ENT: EAC clear b/l. TM's intact b/l without erythema, fluid, or perforation. Nares patent and with clear discharge. oropharynx no erythema without exudates. No tonsilar hypertrophy without erythema or exudate. No palatine shift. Uvula midline. No tongue protrusion. No drooling, hoarseness, or airway compromise. Moist mucous membranes. No sinus tenderness. NECK: Normal range of motion, supple without lymphadenopathy. No rigidity/meningismus. LUNGS: Breath sounds clear to auscultation bilaterally and equal. No wheezes rales or rhonchi. No retractions HEART: Regular rate and rhythm without murmurs, rubs, gallops. ABDOMEN: Soft, nontender, nondistended abdomen. No guarding, no rebound. No masses appreciated. Normal bowel sounds present. No CVA tenderness bilaterally. No hepatosplenomegaly. NEUROLOGICAL: Normal speech, normal gait. Normal sensory, motor exams PSYCH: Normal mood, normal affect. SKIN: Warm, Dry, normal turgor, no rashes or lesions noted. - INFECTION CONTROL TRAVEL OUTSIDE OF THE [place] IN LAST 30 DAYS: No Course - Re-evaluation Re-evalutation: 08/04/18 13:13 Patient is an afebrile, well-hydrated, 37-year-old female who presents to the ED with acute URI, suspect influenza. Vitals are acceptable. PE is otherwise unremarkable. CXR neg. Pt outside treatment and testing window for influenza. No other labs or imaging warranted at this time based on H&P. Patient has no significant cardiopulmonary or immunocompromised medical conditions. Patient's lungs are clear to auscultation bilaterally without tachycardia, hypoxia, or tachypnea. Patient is tolerating p.o. without any difficulties. Low suspicion for any meningitis, sepsis, peritonsillar/pharyngeal abscess, respiratory compromise, severe dehydration, or other emergent systemic condition at this time. Patient is aware this condition can change from initial presentation and she needs to monitor symptoms closely. Conservative measures otherwise for symptoms. Recheck with your PCM in 3-5 days. Return to the ED with any worsening/concerning symptoms otherwise as reviewed in discharge. Patient is in agreement. - Vital Signs Vital signs: Temp Pulse Resp BP Pulse Ox 97.6 F 91 16 107/56 L 98 08/04/18 11:56 08/04/18 11:56 08/04/18 11:56 08/04/18 11:56 08/04/18 11:56 Discharge - Discharge Clinical Impression: Acute URI Condition: Stable Disposition: HOME, SELF-CARE Additional Instructions: Maintain adequate fluid intake Take meds as directed tylenol/ibuprofen as needed over the counter cold medication as needed for symptoms Humidified air may help Wash your hands regularly Wear a mask when coughing F/u: with your PCM in 3-5 days for a recheck Return to the ED with any fever, worsening pain, chest pain, palpitations, syncope, worsening DICK, neck pain/stiffness, shortness of breath, wheezing, drooling, trouble swallowing/breathing, abdominal pain, n/v/d, rash, or worsening/concerning symptoms otherwise. Referrals: ERIKA ANGEL PA-C [NO LOCAL MD] - Follow up as needed
--- NOTE | 2018-08-04 13:06 | RADIOLOGY REPORT (SQ) ---
EXAM DESCRIPTION: CHEST 2 VIEWS COMPLETED DATE/TIME: 08/04/2018 12:50 pm REASON FOR STUDY: cough COMPARISON: None. EXAM PARAMETERS: NUMBER OF VIEWS: two views TECHNIQUE: Digital Frontal and Lateral radiographic views of the chest acquired. RADIATION DOSE: NA LIMITATIONS: none FINDINGS: LUNGS AND PLEURA: No opacities, masses or pneumothorax. No pleural effusion. MEDIASTINUM AND HILAR STRUCTURES: No masses or contour abnormalities. HEART AND VASCULAR STRUCTURES: Heart normal size. No evidence for failure. BONES: No acute findings. HARDWARE: None in the chest. OTHER: No other significant finding. IMPRESSION: NO ACUTE RADIOGRAPHIC FINDING IN THE CHEST. TECHNICAL DOCUMENTATION: JOB ID: [id number] [employer] All Rights Reserved Reading location - IP/workstation name: [email or web address]
[2018-08-04] MEDS ORDERED: IBUPROFEN 800 MG TABLET PO ONE (14:04)
[2018-08-04 14:07] VITALS: BP 114/71
== END 2018-08-04 14:10 | disposition home or self-care (01) ==
LOC: ER 11:41
DX: J06.9 Acute upper respiratory infection, unspecified (principal); R09.81 Nasal congestion; R05 Cough; R50.9 Fever, unspecified; M79.10 Myalgia, unspecified site; R63.0 Anorexia; R09.89 Other specified symptoms and signs involving the circulatory and respiratory systems
CPT/HCPCS: 71046; 99283